=== PATIENT | male | born 1955 | race Caucasian/White ===

== ENCOUNTER 2017-01-09 13:51 | Inpatient (IN) | payer OTHER ==
[~2017-01-09] VITALS: Ht 182.9 cm; Wt 106.4 kg
[2017-01-09] VITALS (14 sets, daily range): BP systolic 99–131; BP diastolic 70–84; PULSE 78–97; RESP 16–22; TEMP 99.1; O2SAT 82–94
[~2017-01-09 13:51] MED LIST: 1-ME1LIQ PO; ALLO300T2 PO; ASPI81TA82 PO; ATOR20TA PO; BUME1TAB PO; CARV6.252 PO; CHOL50006 PO; FERR140T PO; NITR.4 SL; PRAS10TA PO; PROT40TA PO
[2017-01-09] MEDS ORDERED: SODIUM CHLORIDE 0.9% FLUSH 10 ML FLUSH IVF PRN (14:30)
[2017-01-09] MEDS ORDERED: RESP: ALBUTEROL 2.5 MG/3 ML NEB (SCH) INH ONE (14:30)
--- NOTE | 2017-01-09 14:35 | PD ---
HPI Chief Complaint: Cold / Flu Symptoms Time Seen by Provider: 14:10 Travel History International Travel<30 days: No Contact w/Intl Traveler<30days: Yes (flew from [place], possible exposure) Traveled to known affect area: No History of Present Illness HPI 61-year-old male arrives complaining of rhinorrhea, sore throat chest pain shortness of breath for about 2 days or so. Subjective fever reported. Symptoms became much worse this morning. Decreased appetite reported. Urination normal. He's recently flown from [place]. Urgent care workup reveals a multilobar pneumonia. PFSH Past Medical History Asthma: No Autoimmune Disease: No Anxiety: No Depression: No Heart Rhythm Problems: No Cancer: No Cardiovascular Problems: Yes (SD, Sents) High Cholesterol: Yes Chest Pain: No Congestive Heart Failure: Yes COPD: No Diabetes: No Diminished Hearing: No Deep Vein Thrombosis: Yes (RIGHT LEG 2004) Endocrine: No Gastrointestinal Disorders: Yes (REFLUX) GERD: No Gout: Yes Genitourinary: Yes (CONGENITAL ONE KIDNEY) Hepatitis: No Hiatal Hernia: No Hypertension: Yes Immune Disorder: No Musculoskeletal: Yes (HIP BILATERAL REPLACEMENTS) Neurologic: No Psychiatric: No Reproductive: No Respiratory: Yes (SLEEP APNEA, HX OF PE) Myocardial Infarction: Yes Sleep Apnea: Yes Thyroid Disease: No ?: Not Past Surgical History Abdominal Surgery: Yes (APPENDECTOMY) Appendectomy: Yes (2006) Body Medical Devices: DENTAL IMPLANTS Cardiac Surgery: No (ANGIOPLASTY 2013, CARDIAC CATH X2) Endocrine Surgery: No Genitourinary Surgery: Yes (LEFT ORCHIECTOMY, RIGHT HERNIA REPAIR) Joint Replacement: Yes (LEFT HIP, RIGHT HIP) Neurologic Surgery: No Pacemaker: No Thoracic Surgery: No Tonsillectomy: Yes Other Surgery: Yes (TESTICLE REMOVED DUE TO UNDESCENDED TESTE) Social History Alcohol Use: Yes (WEEKENDS 2-3 BEERS OR COCKTAILS) Tobacco Use: No Substance Use: No Allergies-Medications (Allergen,Severity, Reaction): Coded Allergies: Aleve (Verified Allergy, Unknown, hives, 06/09/15) Reported Meds & Prescriptions Reported Meds & Active Scripts Active Bumetanide 1 Mg (Bumetanide) 1 Mg Tab 1 Mg PO DAILY Reported Amlodipine Besylate 10 mg (Amlodipine Besylate) 10 Mg Tab 1 Tab PO DAILY Nitroglycerin 0.4 Mg Subl 0.4 Mg SL DIRECTED Carvedilol 6.25 mg (Carvedilol) 6.25 Mg Tab 6.25 Mg PO BID Effient (Prasugrel) 10 Mg Tab 10 Mg PO DAILY Aspir-81 (Aspirin) 81 Mg Tab 81 Mg PO DAILY Protonix (Pantoprazole Sodium) 40 Mg Tab 40 Mg PO DAILY Ferrous Sulfate 140 Mg Tab 325 Mg PO DAILY Atorvastatin 20 mg tab (Atorvastatin Calcium) 20 Mg Tab 20 Mg PO DAILY 30 Days Vitamin D (Cholecalciferol) 5,000 Unit Tab 1,000 Unit PO DAILY Allopurinol 300 Mg Tab 150 Mg PO DAILY Review of Systems Except as stated in HPI: all other systems reviewed are Neg Physical Exam Narrative GENERAL: 61 yo M, NAD, WNWD SKIN: Warm and dry. HEAD: Atraumatic. Normocephalic. EYES: Pupils equal and round. No scleral icterus. No injection or drainage. ENT: No nasal bleeding or discharge. Mucous membranes pink and moist. NECK: Trachea midline. No JVD. CARDIOVASCULAR: Regular rate and rhythm. RESPIRATORY: Minimal dyspnea. Course breath sounds bilaterally. GASTROINTESTINAL: Abdomen soft, non-tender, nondistended. Hepatic and splenic margins not palpable. MUSCULOSKELETAL: Extremities without clubbing, cyanosis, or edema. No obvious deformities. NEUROLOGICAL: Awake and alert. No obvious cranial nerve deficits. Motor grossly within normal limits. Five out of 5 muscle strength in the arms and legs. Normal speech. PSYCHIATRIC: Appropriate mood and affect; insight and judgment normal. Data Data Last Documented VS Vital Signs Date Time Temp Pulse Resp B/P Pulse Ox O2 Delivery O2 Flow Rate FiO2 01/09/17 15:47 88 Nasal Cannula 4.00 01/09/17 14:21 99.1 89 18 99/71 Orders Complete Blood Count With Diff (01/09/17 14:21) Comprehensive Metabolic Panel (01/09/17 14:21) B-Type Natriuretic Peptide (01/09/17 14:21) Act Partial Throm Time (Ptt) (01/09/17 14:21) Prothrombin Time / Inr (Pt) (01/09/17 14:21) Ckmb (Isoenzyme) Profile (01/09/17 14:21) Troponin I (01/09/17 14:21) Iv Access Insert/Monitor (01/09/17 14:21) Electrocardiogram (01/09/17 14:21) Ecg Monitoring (01/09/17 14:21) Oximetry (01/09/17 14:21) Oxygen Administration (01/09/17 14:21) Chest, Single Ap (01/09/17 14:21) Sodium Chloride 0.9% Flush (Ns Flush) (01/09/17 14:30) Albuterol Neb (Albuterol Neb) (01/09/17 14:30) Blood Culture (01/09/17 14:55) Ceftriaxone Inj (Rocephin Inj) (01/09/17 15:00) Azithromycin Inj (Zithromax Inj) (01/09/17 15:00) Albuterol-Ipratropium Neb (Duoneb Neb) (01/09/17 15:00) Methylprednisolone So Succ Inj (Solumedr (01/09/17 15:00) CKMB (01/09/17 14:44) CKMB% (01/09/17 14:44) Lactic Acid (01/09/17 15:25) Labs Laboratory Tests Test 01/09/17 14:44 White Blood Count 3.6 TH/MM3 Red Blood Count 3.59 MIL/MM3 Hemoglobin 11.4 GM/DL Hematocrit 34.5 % Mean Corpuscular Volume 96.1 FL Mean Corpuscular Hemoglobin 31.9 PG Mean Corpuscular Hemoglobin 33.1 % Concent Red Cell Distribution Width 15.0 % Platelet Count 142 TH/MM3 Mean Platelet Volume 7.8 FL Neutrophils (%) (Auto) 70.4 % Lymphocytes (%) (Auto) 20.6 % Monocytes (%) (Auto) 7.0 % Eosinophils (%) (Auto) 1.1 % Basophils (%) (Auto) 0.9 % Neutrophils # (Auto) 2.7 TH/MM3 Lymphocytes # (Auto) 0.7 TH/MM3 Monocytes # (Auto) 0.2 TH/MM3 Eosinophils # (Auto) 0.0 TH/MM3 Basophils # (Auto) 0.0 TH/MM3 CBC Comment DIFF FINAL Differential Comment Prothrombin Time 10.9 SEC Prothromb Time International 1.0 RATIO Ratio Activated Partial 28.6 SEC Thromboplast Time Sodium Level 142 MEQ/L Potassium Level 4.8 MEQ/L Chloride Level 109 MEQ/L Carbon Dioxide Level 22.2 MEQ/L Anion Gap 11 MEQ/L Blood Urea Nitrogen 64 MG/DL Creatinine 5.10 MG/DL Estimat Glomerular Filtration 12 ML/MIN Rate Random Glucose 103 MG/DL Calcium Level 9.0 MG/DL Total Bilirubin 0.6 MG/DL Aspartate Amino Transf 21 U/L (AST/SGOT) Alanine Aminotransferase 25 U/L (ALT/SGPT) Alkaline Phosphatase 101 U/L Total Creatine Kinase 288 U/L Creatine Kinase MB 1.9 NG/ML Troponin I 0.10 NG/ML B-Type Natriuretic Peptide 1898 PG/ML Total Protein 6.8 GM/DL Albumin 3.0 GM/DL MDM Medical Decision Making Medical Screen Exam Complete: Yes Emergency Medical Condition: Yes Medical Record Reviewed: Yes Differential Diagnosis Pneumonia, CHF, anemia, kidney disease Narrative Course CBC & BMP Diagram 01/09/17 14:44 Tn 0.10 LFTs essentially normal Renal insufficiency worse than prior values BNP 1890 non-specific EKG: Sinus, rate 79, normal axis, normal intervals Pt has pneumonia - abx started, rocephin/azithro, he does re-iterate a crowded flight home from [place] Reassessment at 335PM mild tachypnea, speaking sentences, mild hypoxia at 90% on 4L NC; d/w Dr Menjivar, send lactic acid, reassess, placement in ICU likely necessary; admission to ICU confirmed by second phone conversation at 350pm. Sepsis Criteria SIRS Criteria (2 or more): WBC > 12132, < 4000 or > 10% bands Diagnosis Primary Impression: PNA (pneumonia) Qualified Code: J18.9 - Pneumonia of both lungs due to infectious organism, unspecified part of lung Additional Impression: Hypoxemia Admitting Information Admitting Physician Requests: Admit Additional Instructions: You have a choice when it comes to health care, and we are glad that you chose [facility]. Hopefully, we have met your expectations on today's visit. You are welcome to return to [facility] at any time, as we are committed to meeting the health care needs of our community. Yair Bell MD Jan 09, 2017 14:35
--- NOTE | 2017-01-09 14:38 | RADHPO ---
EXAM DATE/TIME: 01/09/2017 14:25 [facility] COMPARISON: CHEST SINGLE AP, June 09, 2015, 2:15. INDICATIONS : Cough and flu like symtoms. MEDICAL HISTORY : Myocardial infarction. SURGICAL HISTORY : Cardiac stents. ENCOUNTER: Initial ACUITY: 2 days PAIN SCORE: 0/10 LOCATION: Bilateral chest FINDINGS: The study is abnormal. There are consolidative changes in the left lower lobe with minimal air-space disease on the right all suspicious for an inflammatory process. The heart is minimally enlarged. Pulmonary vascularity is normal. CONCLUSION: Consolidative changes much worse on the left suspicious for an inflammatory process. David Bennett MD FACR on January 09, 2017 at 14:34 Board Certified Radiologist. This report was verified electronically.
[2017-01-09 14:55] LABS: AUTOMATED NEUTROPHIL # 2.7 TH/MM3 (1.8-7.7); BASOPHIL % 0.9 % (0.0-2.0); EOSINOPHIL % 1.1 % (0.0-4.0); HEMATOCRIT 34.5 % (39.0-51.0); HEMO FLAGS DIFF FINAL; LYMPH % 20.6 % (9.0-44.0); LYMPHOCYTE # 0.7 TH/MM3 (1.0-4.8); MEAN CELL VOLUME 96.1 FL (80.0-100.0); MEAN CORPUSCULAR HEMOGLOBIN 31.9 PG (27.0-34.0); MEAN CORPUSCULAR HGB CONC 33.1 % (32.0-36.0); NEUT % 70.4 % (16.0-70.0); PLATELET COUNT 142 TH/MM3 (150-450); RED BLOOD COUNT 3.59 MIL/MM3 (4.50-5.90); WHITE BLOOD COUNT 3.6 TH/MM3 (4.0-11.0)
[2017-01-09] MEDS ORDERED: methylPREDNISolone SOD SUCC 125 MG/2 ML VIAL IV ONE (15:00)
[2017-01-09] MEDS ORDERED: AZITHROMYCIN INJ 500 MG in SODIUM CHLOR 0.9% 250 ML INJ 250 ML IV ONE (15:00)
[2017-01-09] MEDS ORDERED: cefTRIAXone INJ 1,000 MG in SODIUM CHLORIDE 0.9% INJ 100 ML IV ONE (15:00)
[2017-01-09 15:05] LABS: CHLORIDE 109 MEQ/L (98-107); POTASSIUM 4.8 MEQ/L (3.5-5.1); SODIUM (NA) 142 MEQ/L (136-145)
[2017-01-09 15:09] LABS: ANION GAP 11 MEQ/L (5-15); APTT (PATIENT) 28.6 SEC (24.3-30.1); BICARBONATE 22.2 MEQ/L (21.0-32.0); BLOOD UREA NITROGEN 64 MG/DL (7-18); PROTHROMBIN TIME - PATIENT 10.9 SEC (9.8-11.6)
[2017-01-09 15:12] LABS: ALT (GPT) 25 U/L (12-78); AST (GOT) 21 U/L (15-37); GLOMERULAR FILTRATION RATE 12 ML/MIN (>89)
[2017-01-09 15:14] LABS: TOTAL BILIRUBIN ADULT 0.6 MG/DL (0.2-1.0)
[2017-01-09 15:15] LABS: ALKALINE PHOSPHATASE 101 U/L (45-117); CREATINE KINASE 288 U/L (39-308)
[2017-01-09 15:28] LABS: CKMB 1.9 NG/ML (0.5-3.6)
[2017-01-09] MEDS: RESP: ALBUTEROL 2.5 MG/IPRATROPIUM 0.5 MG NEB (SCH) INH ×2 (15:41→15:42)
[2017-01-09] MEDS ORDERED: SODIUM CHLORIDE 0.9% FLUSH 10 ML FLUSH IV FLUSH PRN (16:00)
[2017-01-09] MEDS ORDERED: ACETAMINOPHEN 325 MG TAB PO PRN (16:00)
[2017-01-09] MEDS ORDERED: MAGNESIUM HYDROXIDE SUSP 30 ML CUP PO PRN (16:00)
[2017-01-09] MEDS ORDERED: ONDANSETRON HCL 4 MG/2 ML VIAL IVP PRN (16:00)
[2017-01-09] MEDS ORDERED: NALOXONE HCL 0.4 MG/ML AMP IV PRN (16:00)
[2017-01-09] MEDS ORDERED: BUME2TAB PO (16:27)
[2017-01-09] MEDS ORDERED: ASPI81TA19 (16:27)
[2017-01-09] MEDS ORDERED: ALLO100T PO (16:27)
[2017-01-09] MEDS ORDERED: D-10TAB (16:27)
[2017-01-09] MEDS ORDERED: AMLO10TA2 PO (16:27)
[2017-01-09] MEDS ORDERED: [UNRECOGNIZED DRUG - CODE] CHEW (16:27)
[2017-01-09] MEDS ORDERED: ATOR20TA15 PO (16:27)
[2017-01-09] MEDS ORDERED: CARV6.252 PO (16:27)
[2017-01-09] MEDS ORDERED: SODI325T PO (16:27)
[2017-01-09] MEDS ORDERED: VORA1TAB (16:27)
--- NOTE | 2017-01-09 16:32 | HHI.HP ---
cc: Fanta Ochoa Jr., MD [facility] Fanta Ochoa MD Admission Diagnosis PNA, Hypoxia Diagnoses: (1) Severe sepsis Diagnosis: Principal (2) PNA (pneumonia) Diagnosis: Principal (3) Acute respiratory failure Diagnosis: Principal (4) Acute on chronic renal failure Diagnosis: Principal (5) Elevated troponin Diagnosis: Principal (6) Elevated brain natriuretic peptide (BNP) level Diagnosis: Principal (7) Mild anemia Diagnosis: Principal Chief Complaint: SOB Travel History International Travel<30 Days: No Contact w/Intl Traveler <30 Da: Yes (flew from [place], possible exposure) Traveled to Known Affected Are: No Sepsis Criteria SIRS Criteria (2 or more): Heart rate over 90, WBC > 05249, < 4000 or > 10% bands Sepsis Criteria (SIRS+source): Infect source susp/known Severe Sepsis (+one): Organ Dysfunction (O2 82% on RA) Criteria Outcome: Meets severe sepsis criteria History of Present Illness 61-year-old male with history of chronic kidney disease with one kidney, CHF, CAD, hypertension, hyperlipidemia, gout, DVT and PE, and sleep apnea presents with complaint of shortness of breath over the last 3 days stating that he felt "draggy". He states yesterday he was awoke with a mild sore throat but denies having head cold. He states it became worse and worse and woke up this morning and decided he needed to see a physician. He admits to a dry cough and shortness of breath and states his sides ache when he coughs. He admits to fevers and chills last night. Denies any nausea or vomiting. He states he has received a flu vaccination but denies using the pneumonia vaccination. States he was in [place] last week [employer] airplane. He had contact with his sister who had a cold. He denies any history of COPD. Denies leg swelling. The patient states he has stage 3.5-4 chronic kidney disease. Denies any decreased urinary output. Review of Systems Except as stated in HPI: all other systems reviewed are Neg Past Family Social History Past Medical History CAD, STEMI Hyperlipidemia Hypertension CHF CKD, one kidney DVT right leg, PE Sleep apnea Gout GERD Past Surgical History Cardiac catheterization with stenting to the LAD and second diagonal 09/16/13 Cardiac catheterization with in-stent LAD occlusion; restented 09/20/13 Cardiac catheterization 06/10/15 Appendectomy Left orchiectomy due to injury Right inguinal hernia repair TURP B/L hip replacements Reported Medications Reported Meds & Active Scripts Active Aspir-Low (Aspirin) 81 Mg Tabdr 81 Mg PO DAILY Zontivity (Vorapaxar Sulfate) 2.08 Mg Tab 2.08 Mg PO DAILY Reported Sodium Bicarbonate 325 Mg Tab 325 Mg PO BIDPC Fosrenol (Lanthanum Carbonate) 750 Mg Tab 750 Mg CHEW TIDPC D-1000 (Cholecalciferol) 1,000 Unit Tab Carvedilol 6.25 Mg Tab 6.25 Mg PO BID Amlodipine (Amlodipine Besylate) 10 Mg Tab 10 Mg PO DAILY Atorvastatin (Atorvastatin Calcium) 20 Mg Tab 20 Mg PO HS Bumetanide 2 Mg Tab 2 Mg PO DAILY Allopurinol 100 Mg Tab 180 Mg PO DAILY Allergies: Coded Allergies: Aleve (Verified Allergy, Unknown, hives, 06/09/15) Family History No family history of heart or lung disease. Social History Patient quit smoking 8 years ago; smoked cigarettes for 20 years. Lives in [place]. Physical Exam Vital Signs Vital Signs Date Time Temp Pulse Resp B/P Pulse Ox O2 Delivery O2 Flow Rate FiO2 01/09/17 16:19 91 18 131/84 90 Nasal Cannula 4 01/09/17 15:47 88 Nasal Cannula 4.00 01/09/17 14:25 82 Nasal Cannula 2 01/09/17 14:25 82 Nasal Cannula 2 01/09/17 14:25 82 Nasal Cannula 2 01/09/17 14:21 99.1 89 18 99/71 82 Physical Exam GENERAL: This is a pleasant well-nourished, well-developed patient, in no apparent distress. SKIN: Brown pigmentation over the right lower leg. Warm and dry. HEAD: Atraumatic. Normocephalic. EYES: No scleral icterus. No injection or drainage. NECK: Trachea midline. CARDIOVASCULAR: Regular rate and rhythm without murmurs, gallops, or rubs. HR increases with coughing. RESPIRATORY: Coarse breath sounds at the bases, worse over the LLL. O2 via NC. Dry cough. Patient purses his lips at times after coughing to control his breathing. MUSCULOSKELETAL: Trace edema bilateral lower extremities. NEUROLOGICAL: Awake and alert. Motor grossly within normal limits. Normal speech. PSYCHIATRIC: Normal mood and affect. Insight and judgement normal. Laboratory Laboratory Tests Test 01/09/17 01/09/17 14:44 15:47 White Blood Count 3.6 Red Blood Count 3.59 Hemoglobin 11.4 Hematocrit 34.5 Mean Corpuscular Volume 96.1 Mean Corpuscular Hemoglobin 31.9 Mean Corpuscular Hemoglobin 33.1 Concent Red Cell Distribution Width 15.0 Platelet Count 142 Mean Platelet Volume 7.8 Neutrophils (%) (Auto) 70.4 Lymphocytes (%) (Auto) 20.6 Monocytes (%) (Auto) 7.0 Eosinophils (%) (Auto) 1.1 Basophils (%) (Auto) 0.9 Neutrophils # (Auto) 2.7 Lymphocytes # (Auto) 0.7 Monocytes # (Auto) 0.2 Eosinophils # (Auto) 0.0 Basophils # (Auto) 0.0 CBC Comment DIFF FINAL Differential Comment Prothrombin Time 10.9 Prothromb Time International 1.0 Ratio Activated Partial 28.6 Thromboplast Time Sodium Level 142 Potassium Level 4.8 Chloride Level 109 Carbon Dioxide Level 22.2 Anion Gap 11 Blood Urea Nitrogen 64 Creatinine 5.10 Estimat Glomerular Filtration 12 Rate Random Glucose 103 Calcium Level 9.0 Total Bilirubin 0.6 Aspartate Amino Transf 21 (AST/SGOT) Alanine Aminotransferase 25 (ALT/SGPT) Alkaline Phosphatase 101 Total Creatine Kinase 288 Creatine Kinase MB 1.9 Troponin I 0.10 B-Type Natriuretic Peptide 1898 Total Protein 6.8 Albumin 3.0 Lactic Acid Level 1.3 Date/Time Procedure Status Source Growth 01/09/17 16:16 Influenza Types A,B Antigen (JANE) Received Nasal Washing Pending 01/09/17 15:10 Aerobic Blood Culture Received Blood Peripheral Pending 01/09/17 15:10 Anaerobic Blood Culture Received Blood Peripheral Pending Result Diagram: 01/09/17 1444 01/09/17 1444 Imaging Chest x-ray personally interpreted with bilateral consolidations, worse on the left. Assessment and Plan Assessment and Plan 61-year-old male with: Severe sepsis: WBC count 3.6. Heart rate greater than 90. O2 saturation 82% on room air. Source of infection pneumonia. Lactic acid normal. Influenza negative. -Antibiotics as below. -Telemetry -Blood cultures 2 pending -Monitor intake and output Pneumonia/Acute respiratory failure: Chest x-ray with consolidation bilaterally. ABG reviewed with the O2 saturation 82% on 4 L nasal cannula. -Patient was given azithromycin and ceftriaxone in the ED. Will start on Linezolid, Doxycycline, and Zosyn due to severity. Patient admitted to ICU. -Patient was given 125 mg of Solu-Medrol in the ED. -Sputum culture -Legionella and pneumococcal urinary antigen testing -DuoNeb every 4 hours scheduled q2 prn -Oxygen; now requiring Venturi mask. RT to follow. -CT chest ordered for better evaluation Acute on chronic renal failure: Patient states he has stage 3.5-4 CKD. BUN/ creatinine 64/5.10 acutely worse from creatinine of 2.77 on 06/10/15. ABG revealed metabolic acidosis. Electrolytes are stable. -Nephrology consultation -Ultrasound kidneys -Will avoid IVF due to pneumonia, impaired respiratory status, h/o CHF. -Avoid nephrotoxins Elevated troponin: 0.10. Likely attributed to renal failure. Elevated BNP: BNP 1898. Only trace lower extremity edema. Respiratory failure attributed to pneumonia. 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 Likely not in acute CHF exacerbation. -New Echo ordered Mild anemia: 11.4, previously 14.1 on 06/09/15, but patient has had anemia in the past per EMR. -Monitor CBC HTN: Continue carvedilol. Hold amlodipine. CAD: Continue ASA, Zontivity, and statin DVT prevention: Heparin sq Written by Valeria Rodriguez PA-C acting as scribe for Dr. Menjivar on 01/09/17 at ~ 1620. This note was transcribed by scribe. I, Dr. Litzy Menjivar personally performed the history, physical exam, and medical decision making; and confirmed the accuracy of the information in the transcribed note. Authenticated by Dr. Litzy Menjivar on 01/18/17 at 19:03. Code Status FULL CODE. Patient also understands that if his respiratory status deteriorates he could require intubation and he is agreeable to this. Patient's health care surrogate is his partner Geronimo Carson. Discussed Condition With patient Physician Certification 2 Midnight Certification Type: Admission for Inpatient Services Order for Inpatient Services The services are ordered in accordance with Medicare regulations or non- Medicare payer requirements, as applicable. In the case of services not specified as inpatient-only, they are appropriately provided as inpatient services in accordance with the 2-midnight benchmark. Estimated LOS (days): 2 days is the estimated time the patient will need to remain in the hospital, assuming treatment plan goals are met and no additional complications. Post-Hospital Plan: Not yet determined Problem Qualifiers (1) PNA (pneumonia): Qualified Code: J18.9 - Pneumonia of both lungs due to infectious organism, unspecified part of lung Valeria Rodriguez Jan 09, 2017 16:32 Litzy Menjivar MD Jan 18, 2017 19:04
[2017-01-09] MEDS ORDERED: ASPI81TA19 PO (16:59)
[2017-01-09] MEDS ORDERED: VORA1TAB PO (16:59)
[2017-01-09 17:07] LABS: BLOOD GAS BASE EXCESS -6.6 mmol/L (-2-2); BLOOD GAS CARBOXYHEMOGLOBIN 2.3 % (0-4); BLOOD GAS HCO3 18 mmol/L (22-26); BLOOD GAS METHEMOGLOBIN 1.2 % (0-2); BLOOD GAS O2 HGB SATURATION 82 % (90-100); BLOOD GAS OXYGEN CONTENT 13.6 Vol % (12.0-20.0); BLOOD GAS PCO2 30 mmHG (38-42); BLOOD GAS PO2 51 mmHG (61-120); BLOOD GAS TOTAL HGB 11.8 G/DL (12.0-16.0); TEMP CORR TO 98.6
[2017-01-09 17:09] LABS: CRITICAL VALUE YES; DRAW SITE LT RADIAL; LITER FLOW 4 L/M; NUMBER OF ARTERIAL PUNCTURES 1; OXYGEN DEVICE NASAL CANNULA; STAT NO; ULNAR PULSE PRESENT
[2017-01-09] MEDS: DOXYCYCLINE INJ 100 MG in SODIUM CHLORIDE 0.9% INJ 100 ML IV SCH (17:31)
[2017-01-09] MEDS: HEPARIN SODIUM - SQ 10,000 UNITS/ML VIAL SQ SCH (17:31)
--- NOTE | 2017-01-09 17:38 | RADHPO ---
EXAM DATE/TIME: 01/09/2017 16:29 [facility] COMPARISON: CHEST SINGLE AP, January 09, 2017, 14:25. INDICATIONS : Shortness of breath. RADIATION DOSE: 17.60 CTDIvol (mGy) MEDICAL HISTORY : Myocardial infarction. Hypertension. Congestive heart failure. Pulmonary embolism. SURGICAL HISTORY : Stents. ENCOUNTER: Initial ACUITY: 1 day PAIN SCALE: 0/10 LOCATION: Bilateral chest TECHNIQUE: Volumetric scanning of the chest was performed. Using automated exposure control and adjustment of t he mA and/or kV according to patient size, radiation dose was kept as low as reasonably achievable to obtain optimal diagnostic quality images. FINDINGS: LUNGS: Patchy bilateral airspace disease, left greater than right descending for pneumonic infiltrate. PLEURAE: Small bilateral pleural effusions. MEDIASTINUM: Pretracheal and AP window adenopathy is probably reactive associated with the bilateral airspace dise ase. Dense atherosclerotic calcification of the coronary arteries. AXILLAE: Within normal limits. No lymphadenopathy. MUSCULOSKELETAL: Within normal limits for patient age. MISCELLANEOUS: The visualized upper abdominal organs demonstrate no acute abnormality. CONCLUSION: 1. CT confirms the presence of bilateral patchy airspace disease, left greater than right characteris tic of pneumonic infiltrates. 2. Associated pretracheal and AP window adenopathy, likely reactive. 3. Small bilateral pleural effusions. 4. Dense atherosclerotic calcification of the coronary arteries Akbar Chow MD on January 09, 2017 at 17:32 Board Certified Radiologist. This report was verified electronically.
[2017-01-09] MEDS ORDERED: PIPERACIL-TAZO 4.5 GM PREMIX 100 ML IV SCH (18:00)
[2017-01-09] MEDS: SODIUM CHLORIDE 0.9% FLUSH 10 ML FLUSH IV FLUSH SCH (20:13)
[2017-01-09] MEDS: LINEZOLID 600 MG PREMIX 300 ML IV SCH (20:13)
[2017-01-09] MEDS: RESP: ALBUTEROL 2.5 MG/IPRATROPIUM 0.5 MG NEB (SCH) NEB ×2 (20:40→23:46)
[2017-01-09] MEDS: ATORVASTATIN 20 MG TAB PO SCH (21:21)
[2017-01-09] MEDS: CARVEDILOL 6.25 MG TAB PO SCH (21:21)
[2017-01-10] VITALS (22 sets, daily range): BP systolic 105–158; BP diastolic 71–96; PULSE 76–102; RESP 20–33; TEMP 97.6–98.8; O2SAT 91–99
[2017-01-10] MEDS: PIPERACIL-TAZO 2.25 GM PREMIX 50 ML IV SCH ×4 (00:38→21:32)
[2017-01-10] MEDS ORDERED: CHLORHEXIDINE GLUCONATE 2 % 1 PACK (2 CLOTHS)(extra cloths) TOPICAL PRN (01:30)
[2017-01-10] MEDS: RESP: ALBUTEROL 2.5 MG/IPRATROPIUM 0.5 MG NEB (SCH) NEB ×6 (03:35→23:16)
[2017-01-10] MEDS: CHLORHEXIDINE GLUCONATE 2 % 1 PACK (2 CLOTHS)(taper/protocol) TOPICAL SCH (04:00)
[2017-01-10] MEDS: HEPARIN SODIUM - SQ 10,000 UNITS/ML VIAL SQ SCH ×2 (04:20→16:02)
[2017-01-10] MEDS: DOXYCYCLINE INJ 100 MG in SODIUM CHLORIDE 0.9% INJ 100 ML IV SCH ×2 (04:20→16:01)
[2017-01-10] MEDS: LINEZOLID 600 MG PREMIX 300 ML IV SCH ×2 (04:21→18:40)
[2017-01-10 05:47] LABS: CHLORIDE 107 MEQ/L (98-107); SODIUM (NA) 139 MEQ/L (136-145)
[2017-01-10 05:51] LABS: ANION GAP 12 MEQ/L (5-15); BICARBONATE 20.5 MEQ/L (21.0-32.0)
[2017-01-10 06:10] LABS: ALKALINE PHOSPHATASE 81 U/L (45-117); ALT (GPT) 22 U/L (12-78); AST (GOT) 18 U/L (15-37); BLOOD UREA NITROGEN 74 MG/DL (7-18); GLOMERULAR FILTRATION RATE 10 ML/MIN (>89); TOTAL BILIRUBIN ADULT 0.4 MG/DL (0.2-1.0)
[2017-01-10] MEDS ORDERED: PILL SPLITTER OTHER PRN (08:30)
[2017-01-10] MEDS ORDERED: ZONTIVITY 2.08 MG PO SCH (09:00)
--- NOTE | 2017-01-10 09:15 | RADHPO ---
EXAM DATE/TIME: 01/10/2017 08:34 [facility] COMPARISON: US KIDNEY/RENAL/BLADDER, September 10, 2013, 16:33. EXTERNAL COMPARISON : [facility], US BILATERAL RENAL, April 27, 2016 INDICATIONS : Increased BUN/Creatinine. MEDICAL HISTORY : Myocardial infarction. Deep venous thrombosis. Hypercholesterolemia. Renal agenesis, right. Congestiv e heart failure. Hypertension. GERD. Gout. Pulmonary embolism. SURGICAL HISTORY : Appendectomy. Tonsillectomy. Angioplasty. Cardiac catheterization. TURP. Left orchiectomy. Hernia r epair. Bilateral hip replacement. ENCOUNTER: Subsequent ACUITY: 1 day PAIN SCORE: 0/10 LOCATION: Bilateral flank MEASUREMENTS: RIGHT KIDNEY: Absent LEFT KIDNEY: 10.9 x 7.1 x 6.8 cm FINDINGS: RIGHT KIDNEY: Not identified LEFT KIDNEY: Prominent increase in cortical echogenicity. No evidence of hydronephrosis, stone or mass BLADDER: Focally unremarkable. Prostate is mildly prominent. Hypoechoic area separate from the prostate payroll clerk ior to the bladder may be fortuitous debris filled bowel or a mass. Further evaluation with CT of the pelvis would be suggested. CONCLUSION: Possible pelvic mass. Recommend CT pelvis. Single kidney. Increased renal cortical echogenicity consistent with medical renal disease. No hydron ephrosis Ozzie Mcdaniel MD on January 10, 2017 at 9:11 Board Certified Radiologist. This report was verified electronically.
[2017-01-10] MEDS: ASPIRIN EC 81 MG TABEC PO SCH (09:37)
[2017-01-10] MEDS: CARVEDILOL 6.25 MG TAB PO SCH ×2 (09:37→21:27)
[2017-01-10] MEDS: ALLOPURINOL 100 MG TAB PO SCH (09:38)
[2017-01-10] MEDS: SODIUM CHLORIDE 0.9% FLUSH 10 ML FLUSH IV FLUSH SCH ×2 (09:41→21:00)
--- NOTE | 2017-01-10 10:36 | HHI.PR ---
Subjective Remarks Patient seen this morning. Says he feels a little better than when he came in. Denies any chest pain. Denies any nausea or vomiting. No fevers. Patient says he was hydrating very well due to cold. Objective Vital Signs Date Time Temp Pulse Resp B/P Pulse Ox O2 Delivery O2 Flow Rate FiO2 01/10/17 07:18 92 Nasal Cannula 6.00 01/10/17 06:00 90 26 142/87 93 01/10/17 06:00 90 01/10/17 05:00 84 21 128/85 99 01/10/17 04:00 84 01/10/17 04:00 98.4 84 21 129/72 91 01/10/17 03:00 80 26 114/73 94 01/10/17 02:00 76 01/10/17 02:00 76 27 105/71 95 01/10/17 01:20 80 01/10/17 01:00 80 25 114/73 95 01/10/17 00:06 86 22 116/76 92 01/10/17 00:05 98.5 86 25 118/78 91 01/09/17 23:31 89 18 128/72 94 Nasal Cannula 6 01/09/17 21:40 92 18 128/70 94 Nasal Cannula 6 01/09/17 21:15 78 18 127/84 94 Nasal Cannula 6 01/09/17 20:40 91 Venturi Mask 6.00 50 01/09/17 19:34 97 16 124/78 01/09/17 19:34 22 92 Venturi Mask 5 01/09/17 19:34 92 Venturi Mask 5 01/09/17 18:49 86 22 124/80 91 Venturi Mask 01/09/17 17:43 87 18 124/78 88 Venturi Mask 5 50 01/09/17 17:27 90 Venturi Mask 6.00 50 01/09/17 17:24 Venturi Mask 6.00 50 01/09/17 17:20 94 Partial Rebreather 13.00 01/09/17 17:07 84 Nasal Cannula 4.00 01/09/17 16:19 91 18 131/84 90 Nasal Cannula 4 01/09/17 15:47 88 Nasal Cannula 4.00 01/09/17 15:00 88 Nasal Cannula 4 01/09/17 14:25 82 Nasal Cannula 2 01/09/17 14:25 82 Nasal Cannula 2 01/09/17 14:25 82 Nasal Cannula 2 01/09/17 14:21 99.1 89 18 99/71 82 I/O 01/09/17 01/09/17 01/09/17 01/10/17 01/10/17 01/10/17 07:00 15:00 23:00 07:00 15:00 23:00 Intake Total 1210 ml 938 ml Output Total 125 ml 900 ml Balance 1085 ml 38 ml Intake Oral 360 ml 480 ml IV Total 850 ml 458 ml Output Urine Total 125 ml 900 ml # Bowel Movements 0 Result Diagram: 01/09/17 1444 01/10/17 0436 Imaging Last Impressions Renal Ultrasound 01/10/17 0000 Signed Impressions: Service Date/Time: January 08:34 - CONCLUSION: Possible pelvic mass. Recommend CT pelvis. Single kidney. Increased renal cortical echogenicity consistent with medical renal disease. No hydronephrosis Ozzie Mcdaniel MD Chest X-Ray 01/09/17 1421 Signed Impressions: Service Date/Time: Monday, January 09, 2017 14:25 - CONCLUSION: Consolidative changes much worse on the left suspicious for an inflammatory process. David Bennett MD FACR Chest CT 01/09/17 0000 Signed Impressions: Service Date/Time: Monday, January 09, 2017 16:29 - CONCLUSION: 1. CT confirms the presence of bilateral patchy airspace disease, left greater than right characteristic of pneumonic infiltrates. 2. Associated pretracheal and AP window adenopathy, likely reactive. 3. Small bilateral pleural effusions. 4. Dense atherosclerotic calcification of the coronary arteries Akbar Chow MD Objective Remarks GENERAL: Patient sitting up in bed. On oxygen. Appears comfortable. Alert and oriented 3. SKIN: Warm and dry. HEAD: Normocephalic. EYES: No scleral icterus. No injection or drainage. NECK: Supple, trachea midline. JVD. CARDIOVASCULAR: Regular rate and rhythm without murmurs, gallops, or rubs. RESPIRATORY: Breath sounds equal bilaterally. No accessory muscle use. GASTROINTESTINAL: Abdomen soft, non-tender, nondistended. MUSCULOSKELETAL: No cyanosis. No peripheral edema. BACK: Nontender without obvious deformity. No CVA tenderness. A/P Assessment and Plan 61-year-old male with: //Severe sepsis: WBC count 3.6. Heart rate greater than 90. O2 saturation 82% on room air. Source of infection pneumonia. Lactic acid normal. Influenza negative. -Antibiotics as below. -Telemetry -Blood cultures 2 no growth to date -Monitor intake and output -01/10. Repeat CBC pending. Legionella negative. Influenza negative. Likely dilution, CHF exacerbation. //Possible Pneumonia/Acute respiratory failure: Chest x-ray with consolidation bilaterally. ABG reviewed with the O2 saturation 82% on 4 L nasal cannula. -Patient was given azithromycin and ceftriaxone in the ED. Will start on Linezolid, Doxycycline, and Zosyn due to severity. Patient admitted to ICU. -Patient was given 125 mg of Solu-Medrol in the ED. -Sputum culture -Legionella and pneumococcal urinary antigen testing -DuoNeb every 4 hours scheduled q2 prn -Oxygen; now requiring Venturi mask. RT to follow. -CT chest I lateral airspace disease. Bilateral pleural effusions. Small. -01/10. No improvement. Suspect this is bilateral pulmonary edema. Treat for CHF exacerbation. 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 BUN/ creatinine 64/5.10 acutely worse from creatinine of 2.77 on 06/10/15. ABG revealed metabolic acidosis. Electrolytes are stable. -Nephrology consultation -Ultrasound kidneys -Will avoid IVF due to pneumonia, impaired respiratory status, h/o CHF. -Avoid nephrotoxins //Elevated troponin: 0.10. . Patient without chest pain. Attributed to renal failure. //Suspected CHF exacerbation Elevated BNP: BNP 1898. Only trace lower extremity edema. pos JVD. Respiratory failure initially attributed to pneumonia. -Dr. Guerra reported last EF was 40% and he is controlled on medications. -Patient was hydrating more than usual due to cold. -01/10-jvd. New Echo pending. Possible cardiorenal syndrome as well. Diuresis. //Mild anemia: 11.4, previously 14.1 on 06/09/15, but patient has had anemia in the past per EMR. -Likely secondary to kidney failure, dilution from fluid overload. Patient denies bleeding. -Monitor CBC HTN: Continue carvedilol. Hold amlodipine. Blood pressure stable. CAD: Continue ASA, Zontivity, and statin DVT prevention: Heparin sq Discharge Planning Continue tx for CHF exacerbation, acute renal failure. Grant Raygoza MD Jan 10, 2017 10:36
[2017-01-10 10:53] LABS: AUTOMATED NEUTROPHIL # 2.4 TH/MM3 (1.8-7.7); BASOPHIL % 0.5 % (0.0-2.0); HEMATOCRIT 31.7 % (39.0-51.0); HEMO FLAGS DIFF FINAL; LYMPH % 14.6 % (9.0-44.0); LYMPHOCYTE # 0.4 TH/MM3 (1.0-4.8); MEAN CELL VOLUME 96.3 FL (80.0-100.0); MEAN CORPUSCULAR HEMOGLOBIN 31.5 PG (27.0-34.0); MEAN CORPUSCULAR HGB CONC 32.8 % (32.0-36.0); MONO % 1.1 % (0.0-8.0); NEUT % 83.8 % (16.0-70.0); PLATELET COUNT 136 TH/MM3 (150-450); RED BLOOD COUNT 3.29 MIL/MM3 (4.50-5.90); RED CELL DISTRIBUTION WIDTH 14.3 % (11.6-17.2); WHITE BLOOD COUNT 2.8 TH/MM3 (4.0-11.0)
[2017-01-10] MEDS ORDERED: FUROSEMIDE 40 MG/4 ML VIAL IV PUSH ONE (11:00)
--- NOTE | 2017-01-10 11:42 | EC ---
Study Study Date:01/10/2017 STUDY CONCLUSIONS SUMMARY - Left ventricle: The cavity size was dilated. Wall thickness was normal. Systolic function was moderately to severely reduced by visual assessment. The estimated ejection fraction was in the range of 35% to 40%. Wall motion was normal; there were no regional wall motion abnormalities. Features are consistent with a pseudonormal left ventricular filling pattern, with concomitant abnormal relaxation and increased filling pressure (grade 2 diastolic dysfunction). - Mitral valve: Mild to moderate regurgitation. - Left atrium: The atrium was mildly dilated. - Tricuspid valve: Mild regurgitation. - Pulmonary arteries: Systolic pressure was moderately increased. PA peak pressure: 54mm Hg (S). If LV function is below 40, please consider prescribing an ACEI or ARB or document rationale for non-use. PROCEDURE DATA STUDY STATUS: Elective. Procedure: Transthoracic echocardiography. Image quality was good. Scanning was performed from the parasternal, apical, and subcostal acoustic windows. Study completion: The patient tolerated the procedure well. Transthoracic echocardiography. M-mode, complete 2D, complete spectral Doppler, and color Doppler. Patient status: Inpatient. CARDIAC ANATOMY LEFT VENTRICLE: The cavity size was dilated. Wall thickness was normal. Systolic function was moderately to severely reduced by visual assessment. The estimated ejection fraction was in the range of 35% to 40%. Wall motion was normal; there were no regional wall motion abnormalities. Features are consistent with a pseudonormal left ventricular filling pattern, with concomitant abnormal relaxation and increased filling pressure (grade 2 diastolic dysfunction). AORTIC VALVE: Probably trileaflet; normal thickness leaflets. Doppler: Transvalvular velocity was within the normal range. There was no stenosis. No regurgitation. AORTA: Aortic root: The aortic root was normal in size. MITRAL VALVE: Structurally normal valve. Doppler: Transvalvular velocity was within the normal range. There was no evidence for stenosis. Mild to moderate regurgitation. Peak gradient: 3mm Hg (D). LEFT ATRIUM: The atrium was mildly dilated. RIGHT VENTRICLE: The cavity size was normal. Wall thickness was normal. PULMONIC VALVE: Doppler: Transvalvular velocity was within the normal range. There was no evidence for stenosis. No regurgitation. TRICUSPID VALVE: Structurally normal valve. Doppler: Transvalvular velocity was within the normal range. Mild regurgitation. PULMONARY ARTERY: Systolic pressure was moderately increased. RIGHT ATRIUM: Not well visualized. The atrium was normal in size. PERICARDIUM: There was no pericardial effusion. SYSTEMIC VEINS: Inferior vena cava: The vessel was normal in size. BASIC MEASUREMENTS ADULT Normal Left ventricle LV internal dimension, ED, chordal level, 48.6 mm 43-52 PLAX LV internal dimension, ES, chordal level, *39.7 mm 23-38 PLAX Fractional shortening, chordal level, PLAX *18 % >29 LV posterior wall thickness, ED 9.59 mm IVS/LVPW ratio, ED 0.92 <1.3 Ventricular septum Septal thickness, ED 8.82 mm Left atrium Anterior-posterior dimension 39 mm Right ventricle RV internal dimension, ED, PLAX 19.3 mm 19-38 DOPPLER MEASUREMENTS ADULT Normal Main pulmonary artery Pressure, S *54 mm Hg =30 Mitral valve Peak E-wave velocity 92.7 cm/s Peak A-wave velocity 43.9 cm/s Peak gradient, D 3 mm Hg Peak E/A ratio 2.1 Maximal regurgitant velocity 475 cm/s Tricuspid valve Regurgitant peak velocity 350 cm/s Peak RV-RA gradient, S 49 mm Hg Maximal regurgitant velocity 350 cm/s Systemic veins Estimated CVP 5 mm Hg Right ventricle RV pressure, S *54 mm Hg <30 LEGEND: Mean values are shown as u=mean value. Asterisk (*) hernandez values outside specified normal range. Prepared and signed by Vic Winkler [id number]
[2017-01-10] MEDS ORDERED: DIATRIZOATE MEGLUM/DIATRIZOATE SOD 9 ML CUP PO ONE (12:30)
--- NOTE | 2017-01-10 12:55 | MB ---
cc: KEY QUIÑONES MD DATE OF CONSULTATION 01/10/2017 REASON FOR CONSULTATION Chronic kidney disease, advanced renal failure. HISTORY OF PRESENT ILLNESS This is a 61-year-old male with a past medical history of hypertension, history of sleep apnea, ischemic heart disease, hyperlipidemia, congestive heart failure, chronic kidney disease with single kidney. He came to the hospital with the complaint of worsening shortness of breath. I was called to see the patient because of elevated BUN and creatinine. The patient has known history of chronic kidney disease and he has been following with professor of archaeology in [place] and he was told that he will need to go on dialysis soon and he went through all this and he decided that he would want to go for peritoneal dialysis and he is supposed to see his professor of archaeology tomorrow to finalize the plan to get the PD catheter. 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 For the last 10 days to 2 weeks he has noticed that he has increased shortness of breath and has been getting worse. There was cough, mainly dry. There is no history of fever but at night he was feeling some chills. There is no vomiting. There is no dysuria, hematuria or difficulty in passing urine but he did notice that he has been passing a little bit less. He was taking Bumex 1 mg at home he was told by his professor of archaeology to increase it to twice a day if needed. He denies any chest pain. PAST MEDICAL HISTORY 1. Hypertension. 2. Ischemic heart disease. 3. Hyperlipidemia. 4. Chronic kidney disease. 5. Congestive heart failure. 6. History of DVT and pulmonary embolism. 7. Sleep apnea. 8. Gout. 9. Gastroesophageal reflux disease. PAST SURGICAL HISTORY 1. Cardiac catheterization. 2. Appendicectomy. 3. Left orchiectomy. 4. Right inguinal surgery. 5. TURP. 6. Bilateral hip replacements. REVIEW OF SYSTEMS The patient had history of fever, just the night before coming here and was feeling chills but here he has been afebrile with no headache or dizziness. No nausea or vomiting. He has shortness of breath which has been getting worse on exertion. He is feeling better with oxygen and lying in the bed. Denies any chest pain. He has this cough which is mainly dry. There is no history of diarrhea. No dysuria or hematuria or difficulty in passing urine but he did notice that he has decreased urine output. There is no history of taking any nonsteroidal anti-inflammatory drugs. SOCIAL HISTORY Past history of smoking. Stopped eight years ago. There is no history of heavy alcoholism. FAMILY HISTORY Noncontributory. ALLERGIES ALLERGIC TO ALEVE. MEDICATIONS Currently he is on - 1. Carvedilol 6.25 mg b.i.d. 2. Allopurinol 150 mg once a day. 3. Aspirin 81 mg daily. 4. Lipitor 20 mg q.h.s. 5. DuoNeb nebulizer. 6. Furosemide 40 mg one dose written this morning. 7. Linezolid he is on 600 mg daily. 8. Doxycycline 100 mg q. 12 hours. 9. Heparin 5000 units subcu q. 12 hours. 10. Zosyn 2.25 grams IV q. 8 hours. 11. Morphine as needed. 12. Tylenol as needed. 13. Zofran as needed. PHYSICAL EXAMINATION GENERAL: The patient is awake and alert. He is not in acute distress. VITAL SIGNS: His last blood pressure was 142/87, temperature 98.4, oxygen saturation on 6 liters nasal cannula, 92-93%. HEENT: Pupils equally reacting to light. Nonicteric sclerae, conjunctivae pale. NECK: Supple. JVD is not elevated. CHEST: The patient has bilateral decreased air entry with basilar rales and scattered wheezing. HEART: S1, S2. Regular rhythm. ABDOMEN: Distended, soft, lax. There is no tenderness. Bowel sounds positive. EXTREMITIES: There is mild edema in the legs. INVESTIGATIONS WBC count is 2.8. Hemoglobin is 10.4, platelet count 136, neutrophils 83.8%. Sodium 139, potassium 5.0, chloride 107, bicarb 20.5, BUN 74, creatinine 5.7, glucose 240, total protein is 6.2 with albumin of 2.5. INR is 1.0. Trop I is 0.1. Albumin 3.0, total protein 6.8, cholesterol is not done during this admission. Urinalysis showing that he has protein over 100. This was an old one done in 2012. IMAGING STUDIES The patient had ultrasound of the kidneys done which shows that he has absent right kidney. The left kidney is normal in size, possible pelvic mass. Recommend CT scan. Chest x-ray was done which shows consolidative changes much worse in the left suspicious of inflammatory process. Pulmonary vasculature is normal. CT of the chest was done which shows bilateral patchy air space disease, calcification of coronary arteries, bilateral small pleural effusions. ASSESSMENT AND PLAN 1. Pneumonia. 2. Chronic kidney disease with advanced renal failure. 3. Anemia. 4. Ischemic heart disease and congestive heart failure. 5. Mild anemia. 6. History of DVT. The patient has been getting antibiotics. He has been afebrile. The WBC count is low. The hemoglobin has dropped slightly but it is still 10.4. The patient has advanced renal failure and his GFR is 10-12. There is possibly an element of acute kidney injury also but he is probably reaching to the point that he will need to consider starting dialysis soon. I discussed with him in detail. He wants to ago for peritoneal dialysis and he wants to hold hemodialysis if possible. There is no acute urgency. At present he is not having too many symptoms of uremia except that he has decreased energy level which could be also from pneumonia. At present I agree with continuing IV fluid but I would also add diuretics which is Bumex that he has been taking at home and follow the BUN and creatinine. If it gets worse, then he probably will need to start on hemodialysis. I have discussed with him about it. Thank you for the consultation. I will follow the patient while he is in the hospital. MD RENETTA Alford/DARREN /11:01 AM /12:30 PM
--- NOTE | 2017-01-10 13:12 | EKG ---
Date Performed: 01/09/2017 Time Performed: 14:30:16 PTAGE: 61 years EKG: Sinus rhythm Lateral T wave changes are nonspecific Borderline ECG PREVIOUS TRACING : 06/10/2015 06.05 Compared to prior tracing no significant change DOCTOR: Kai Peck Interpretating Date/Time 01/10/2017 13:11:12
[2017-01-10 14:03] LABS: BLOOD, URINE SMALL (NEG); GLUCOSE,URINE 250 mg/dL (NEG); KETONE, URINE NEG (NEG); NITRITE,URINE NEG (NEG); PH, URINE 5.5 (5.0-8.5)
[2017-01-10 14:09] LABS: METHOD OF COLLECTION CLEAN CATCH; URINE COLOR STRAW (YELLW/STRAW)
[2017-01-10 14:10] LABS: COMMENT (UR) CULT NOT INDICATED; CULTURE IF INDICATED CULT NOT INDICATED; SQUAMOUS EPITHELIAL CELL URINE 0-5 /hpf (0-5)
--- NOTE | 2017-01-10 17:18 | RADHPO ---
EXAM DATE/TIME: 01/10/2017 15:44 [facility] COMPARISON: US KIDNEY/RENAL/BLADDER, January 10, 2017, 8:34. INDICATIONS : Abnormal results from ultrasound. Evaluate for pelvic mass. ORAL CONTRAST: Prescribed oral contrast ingested. RADIATION DOSE: 21.78 CTDIvol (mGy) MEDICAL HISTORY : Gastroesophageal reflux disease. Deep venous thrombosis. Renal failure, chronic.Hypertension. Pulmona ry embolism. CHF. Renal agenesis, right. SURGICAL HISTORY : Appendectomy. Bilateral hip replacements. Hernia repair. ENCOUNTER: Subsequent ACUITY: 2 days PAIN SCALE: 0/10 LOCATION: pelvis TECHNIQUE: Volumetric scanning of the abdomen and pelvis was performed. Using automated exposure control and ad justment of the mA and/or kV according to patient size, radiation dose was kept as low as reasonably achievable to obtain optimal diagnostic quality images. FINDINGS: The examination is performed to characterize no abnormality seen posterior to the prostate on recent renal ultrasound. There is a mass which measures 3.7 cm and contains internal hyperdensity including several small punctate areas of flocculation. This appears to be arising from or adjacent to the re ctum. The appearance suggests barium, however, there is no barium in the sigmoid colon. There are s ome small locular calcifications in the splenic flexure and transverse colon and a mixture of oral co ntrast and flocculation in the right colon. Oral contrast is present in proximal small bowel loops. No dilated loops of small bowel. The left kidney is prominent, measuring 13 cm in superior/inferior extent. No renal stones or hydron ephrosis. The right kidney is not identified. The liver, spleen, pancreas, and adrenal glands are u nremarkable non-contrast study. No calcified gallstones. The abdominal aorta is normal in diameter. Urinary bladder margins are smooth. There is an asymmetric appearance the seminal vesicles with th e right seminal vesicle considerably larger than the left. Bilateral fat containing inguinal hernias , right greater than left. Abnormal appearance of lower lungs with multifocal areas of patchy partially consolidative infiltrate . No evidence of pleural effusion. Wide windows for bony detail demonstrate bilateral total hip art hroplasty which does cause a area of beam hardening in the mid pelvis. No sclerotic lesion seen. Ad vanced degenerative change the posterior elements of the lower lumbar spine. CONCLUSION: 1. There is a 3.7 cm masslike lesion which contains a either calcification or retained barium; this a ppears to arise from the distal rectum and may represent a large diverticular outpouching or impacted barium. A calcified mass can not be excluded. May consider direct visualization with sigmoidoscopy to increase the specificity. 2. Abnormal appearance the lower lungs with patchy areas of partially consolidative airspace infiltra anup. 3. Bilateral fat containing inguinal hernias. 4. No dilated loops of small or large bowel. Lobo Oleary MD on January 10, 2017 at 17:09 Board Certified Radiologist. This report was verified electronically.
[2017-01-10] MEDS ORDERED: BUMETANIDE INJ 1 MG/4 ML VIAL IV PUSH SCH (18:00)
[2017-01-10] MEDS: ATORVASTATIN 20 MG TAB PO SCH (21:27)
[2017-01-11] VITALS (15 sets, daily range): BP systolic 114–127; BP diastolic 73–89; PULSE 75–90; RESP 20–24; TEMP 98.8; O2SAT 92–100
[2017-01-11] MEDS: HEPARIN SODIUM - SQ 10,000 UNITS/ML VIAL SQ SCH ×2 (03:31→16:39)
[2017-01-11] MEDS: DOXYCYCLINE INJ 100 MG in SODIUM CHLORIDE 0.9% INJ 100 ML IV SCH ×2 (03:31→16:40)
[2017-01-11] MEDS: CHLORHEXIDINE GLUCONATE 2 % 1 PACK (2 CLOTHS)(taper/protocol) TOPICAL SCH (03:31)
[2017-01-11] MEDS: RESP: ALBUTEROL 2.5 MG/IPRATROPIUM 0.5 MG NEB (SCH) NEB ×6 (04:03→23:01)
[2017-01-11] MEDS: LINEZOLID 600 MG PREMIX 300 ML IV SCH ×2 (04:41→16:39)
[2017-01-11] MEDS: PIPERACIL-TAZO 2.25 GM PREMIX 50 ML IV SCH ×3 (05:53→20:57)
[2017-01-11] MEDS ORDERED: BENZONATATE 100 MG CAP PO PRN (08:30)
[2017-01-11] MEDS: ATORVASTATIN 40 MG TAB PO SCH (08:37)
[2017-01-11] MEDS: MORPHINE SULFATE 4 MG/ML INJ IV PRN ×2 (08:39→22:32)
[2017-01-11] MEDS: ASPIRIN EC 81 MG TABEC PO SCH (08:39)
[2017-01-11] MEDS: ALLOPURINOL 100 MG TAB PO SCH (08:39)
[2017-01-11] MEDS: CARVEDILOL 6.25 MG TAB PO SCH ×2 (08:40→20:55)
[2017-01-11] MEDS: SODIUM CHLORIDE 0.9% FLUSH 10 ML FLUSH IV FLUSH SCH ×2 (09:00→20:56)
[2017-01-11 09:44] LABS: AUTOMATED NEUTROPHIL # 4.4 TH/MM3 (1.8-7.7); BASOPHIL % 0.1 % (0.0-2.0); EOSINOPHIL % 0.1 % (0.0-4.0); HEMATOCRIT 35.3 % (39.0-51.0); HEMO FLAGS DIFF FINAL; LYMPH % 12.8 % (9.0-44.0); LYMPHOCYTE # 0.7 TH/MM3 (1.0-4.8); MEAN CELL VOLUME 97.2 FL (80.0-100.0); MEAN CORPUSCULAR HEMOGLOBIN 32.1 PG (27.0-34.0); MONO % 3.2 % (0.0-8.0); NEUT % 83.8 % (16.0-70.0); PLATELET COUNT 148 TH/MM3 (150-450); RED BLOOD COUNT 3.63 MIL/MM3 (4.50-5.90); RED CELL DISTRIBUTION WIDTH 14.9 % (11.6-17.2); WHITE BLOOD COUNT 5.3 TH/MM3 (4.0-11.0)
[2017-01-11 10:03] LABS: BICARBONATE 21.5 MEQ/L (21.0-32.0); POTASSIUM 4.2 MEQ/L (3.5-5.1)
--- NOTE | 2017-01-11 11:17 | HHI.NPPN ---
Subjective Renal Failure: Stage IV History of Present Illness 61-year-old male with a past medical history of hypertension, history of sleep apnea, ischemic heart disease, hyperlipidemia, congestive heart failure, chronic kidney disease with single kidney. He came to the hospital with the complaint of worsening shortness of breath. I was called to see the patient because of elevated BUN and creatinine. The patient has known history of chronic kidney disease and he has been following with admeasurer in [place]. Additional Remarks Patient is alert, breathing is better, still has cough, mainly dry, no chest pain. Review of Systems General Constitutional: Fatigue Respiratory Lungs: SOB, Cough Cardiovascular Cardiac: Edema, GR Objective Data Data 01/10/17 01/11/17 19:00 07:00 Intake Total 563 ml 1197 ml Output Total 1275 ml 1600 ml Balance -712 ml -403 ml Intake Oral 480 ml 640 ml IV Total 83 ml 557 ml Output Urine Total 1275 ml 1600 ml # Bowel Movements 0 0 Vital Signs Date Time Temp Pulse Resp B/P Pulse Ox O2 Delivery O2 Flow Rate FiO2 01/11/17 10:00 81 01/11/17 08:00 81 01/11/17 08:00 98.8 75 20 126/86 100 01/11/17 07:34 94 Nasal Cannula 6.00 01/11/17 06:00 81 01/11/17 06:00 98.8 75 20 126/86 100 01/11/17 04:00 83 01/11/17 02:00 76 01/11/17 00:00 98.8 76 20 114/73 96 01/11/17 00:00 76 01/10/17 20:00 84 01/10/17 20:00 97.7 84 20 148/91 95 01/10/17 19:48 94 Nasal Cannula 6.00 01/10/17 18:00 78 01/10/17 18:00 97.9 78 20 131/88 96 01/10/17 17:00 82 23 144/89 94 01/10/17 16:00 84 01/10/17 16:00 82 23 134/85 95 01/10/17 14:00 88 01/10/17 13:00 84 26 129/79 95 01/10/17 12:00 86 01/10/17 12:00 97.6 86 28 126/78 93 -: 01/11/17 0920 01/11/17 0920 Microbiology 01/11/17 Gram Stain, Received Pending 01/11/17 Sputum Culture, Received Pending Physical Exam General Appearance: No Acute Distress, Comfortable Eyes Eye Exam: Pupils Equal Neck Neck Exam: Neck Supple, Trachea Midline Pulmonary Resp Exam: Breath Sounds Equal, No Distress, Rhonchi, Decreased Bases Cardiology CV Exam: Regular, Normal Sinus Rhythm Gastrointestinal/Abdomen GI Exam: Soft, Non-Tender, Bowel Sounds Present Extremeties Extremities Exam: Trace Edema Neurologic Neuro Exam: Alert, Awake, Oriented Psychiatric Psych Exam: Appropriate Responses Assessment/Plan Assessment Summary: GENTRY/Acute Renal Failure, CHF, CKD Stage IV Problem List: (1) HTN (hypertension) (2) CHF (congestive heart failure) (3) Elevated troponin (4) PNA (pneumonia) (5) Acute respiratory failure (6) Mild anemia (7) Acute on chronic renal failure Plan Patient has advance stage 4 chronic kidney disease, has some Acute worsening now. On antibiotics for pneumonia. BP is stable, urine out put is good. Bumex stopped, as also Creatinine increasing. D/W the patient again about possible HD. He would like to hold Dialysis if possible for now and start PD. If continue to get worse, will consider HD. Continue antibiotics, hold Bumex for now. Seen by cardiology. Problem Qualifiers (1) PNA (pneumonia): Qualified Code: J18.9 - Pneumonia of both lungs due to infectious organism, unspecified part of lung Vish Ann MD Jan 11, 2017 11:17
--- NOTE | 2017-01-11 12:43 | MB ---
cc: RODRIGO SERRA ALAN S. M.D. WILSON, VANCE E. M.D. DATE OF 1955 DATE OF CONSULTATION 01/11/2017 HISTORY OF PRESENT ILLNESS The patient is a pleasant 61-year-old gentleman I am seeing for cardiovascular consultation. I have reviewed outside and hospital records. The patient has known coronary artery disease with prior stenting done in 2012 with subsequent thrombosis with restenting. His last catheterization done 06/21 showed mild distal left main, 20-30% in-stent LAD stenosis, 90% narrowing of the diagonal with 40% proximal in-stent restenosis there, normal circumflex, mild to moderate RCA disease. SPECT nuclear done 10/23 showed fixed anterior defect with estimated ejection fraction 30%. The patient notes 3-4 days of increasing dry cough with fevers and shaking chills along with fatigue. He noted no chest pain or other cardiac symptomatology and has had no edema or palpitations. PAST MEDICAL HISTORY 1. Cardiac, as above. 2. Hypertension. 3. Hyperlipidemia. 4. Chronic kidney disease. 5. Prior PE and DVT in the right leg. 6. Sleep apnea. 7. Gout. 8. Clopidogrel non-responder. 9. Mild systolic congestive heart failure. PAST SURGICAL HISTORY 1. Bilateral total hip replacement. 2. Appendectomy. 3. Orchiectomy. SOCIAL HISTORY The patient is disabled and has a domestic partner. He is a former smoker and occasionally drinks. FAMILY HISTORY Remarkable for brother with an MD. ALLERGIES None. MEDICATION LIST Reviewed. Prior to admission he is on - 1. Allopurinol. 2. Amlodipine. 3. Aspirin. 4. Atorvastatin. 5. Bumex. 6. Carvedilol. 7. Zontivity. REVIEW OF SYSTEMS Only remarkable for the above along with occasional joint pain. EKG ON ADMISSION Sinus rhythm with nonspecific T-wave changes. ECHOCARDIOGRAM A 35-40% ejection fraction with mild to moderate MR and mild TR with estimated RV pressure 54-mm. CHEST CT revealed patchy bilateral air space disease with pretracheal and AP window adenopathy likely reactive. LABORATORY WORK The patient is a newly anemic. Hematocrit 31.7. PT/PTT normal. Potassium 5.0, creatinine has increased from 5.1 to 5.7 in the hospital. Glucose 240. Troponin 0.10. BNP elevated 1898. Albumin 3.0 and 2.5. LDL 87. PHYSICAL EXAMINATION VITAL SIGNS: Afebrile. Vital signs stable. GENERAL: He is alert and oriented x 3. There are no xanthelasma and oropharyngeal mucosa normal. He did have a low-grade fever on admission with some hypoxemia. CHEST: Decreased breath sounds with moderate mathis-expiratory wheezes. CARDIOVASCULAR: JVD normal. PMI not well felt. S1-S2. No murmurs or gallops. ABDOMEN: Benign. EXTREMITIES: No cyanosis, clubbing or edema. PULSES: Carotids without bruits. Radials 2+. Femorals deep, 1+ and without bruits. Pedals 1+. He is not ambulated. PROBLEMS 1. Probable pneumonia. 1. Elevated BNP - This is nonspecific and there is no definite evidence of congestive heart failure. His troponin is minimally elevated but in the setting of his renal disease and cardiomyopathy, this is nonspecific. 2. Hypertension. 3. Hyperlipidemia. 4. Known coronary disease. 5. Acute on chronic kidney disease. RECOMMENDATIONS At this point I would recommend the following - 1. Continue home cardiac medications without change. 2. DVT prophylaxis. 3. Renal is involved. 4. Antibiotics per primary service. 5. Low cholesterol/salt diet. 6. We will not follow but be available if needed. All questions have been answered. Kojo Trimble MD ASG/SSB /6:36 AM /12:25 PM
--- NOTE | 2017-01-11 20:24 | HHI.PR ---
Subjective Remarks pt seen this afternoon around 3pm. pt says he is feeling better. some coughing this am but feels like he is getting more air in his lungs. took off oxygen, down to 90%, then back to 92 on no o2. pt agrees to hiv testing. Objective Vital Signs Date Time Temp Pulse Resp B/P Pulse Ox O2 Delivery O2 Flow Rate FiO2 01/11/17 18:00 90 01/11/17 16:00 86 01/11/17 16:00 98.8 75 20 126/86 100 01/11/17 14:00 90 01/11/17 12:00 98.8 75 20 126/86 100 01/11/17 12:00 81 01/11/17 10:00 81 01/11/17 08:44 22 01/11/17 08:00 81 01/11/17 08:00 98.8 75 20 126/86 100 01/11/17 07:34 94 Nasal Cannula 6.00 01/11/17 06:00 81 01/11/17 06:00 98.8 75 20 126/86 100 01/11/17 04:00 83 01/11/17 02:00 76 01/11/17 00:00 98.8 76 20 114/73 96 01/11/17 00:00 76 I/O 01/10/17 01/10/17 01/10/17 01/11/17 01/11/17 01/11/17 07:00 15:00 23:00 07:00 15:00 23:00 Intake Total 938 ml 480 ml 605 ml 675 ml 580 ml Output Total 900 ml 1050 ml 1125 ml 700 ml 940 ml Balance 38 ml -570 ml -520 ml -25 ml -360 ml Intake Oral 480 ml 480 ml 400 ml 240 ml 480 ml IV Total 458 ml 0 ml 205 ml 435 ml 100 ml Output Urine Total 900 ml 1050 ml 1125 ml 700 ml 940 ml # Bowel Movements 0 0 0 0 1 Result Diagram: 01/11/1720 01/11/17 0920 Imaging Last Impressions Renal Ultrasound 01/10/17 0000 Signed Impressions: Service Date/Time: January 08:34 - CONCLUSION: Possible pelvic mass. Recommend CT pelvis. Single kidney. Increased renal cortical echogenicity consistent with medical renal disease. No hydronephrosis Ozzie Mcdaniel MD Abdomen/Pelvis CT 01/10/17 0000 Signed Impressions: Service Date/Time: January 15:44 - CONCLUSION: 1. There is a 3.7 cm masslike lesion which contains a either calcification or retained barium ; this appears to arise from the distal rectum and may represent a large diverticular outpouching or impacted barium. A calcified mass can not be excluded. May consider direct visualization with sigmoidoscopy to increase the specificity. 2. Abnormal appearance the lower lungs with patchy areas of partially consolidative airspace infiltrates. 3. Bilateral fat containing inguinal hernias. 4. No dilated loops of small or large bowel. Lobo Oleary MD Chest X-Ray 01/09/17 1421 Signed Impressions: Service Date/Time: Monday, January 09, 2017 14:25 - CONCLUSION: Consolidative changes much worse on the left suspicious for an inflammatory process. David Bennett MD FACR Chest CT 01/09/17 0000 Signed Impressions: Service Date/Time: Monday, January 09, 2017 16:29 - CONCLUSION: 1. CT confirms the presence of bilateral patchy airspace disease, left greater than right characteristic of pneumonic infiltrates. 2. Associated pretracheal and AP window adenopathy, likely reactive. 3. Small bilateral pleural effusions. 4. Dense atherosclerotic calcification of the coronary arteries Akbar Chow MD Objective Remarks GENERAL: Patient sitting up in chair. on 5 L of oxygen, however this was removed and patient subsequently satting 92% on room air. Appears comfortable. Alert and oriented 3. SKIN: Warm and dry. HEAD: Normocephalic. EYES: No scleral icterus. No injection or drainage. NECK: Supple, trachea midline. JVD. CARDIOVASCULAR: Regular rate and rhythm without murmurs, gallops, or rubs. RESPIRATORY: Breath sounds equal bilaterally. No accessory muscle use.patient with improved air movement today.bilateral crackles. GASTROINTESTINAL: Abdomen soft, non-tender, nondistended. MUSCULOSKELETAL: No cyanosis. No peripheral edema. BACK: Nontender without obvious deformity. No CVA tenderness. A/P Assessment and Plan 61-year-old male with: //Severe sepsis: WBC count 3.6. Heart rate greater than 90. O2 saturation 82% on room air. Source of infection pneumonia. Lactic acid normal. Influenza negative. -Antibiotics as below. -Telemetry -Blood cultures 2 no growth to date -Monitor intake and output -01/10. Repeat CBC pending. Legionella negative. Influenza negative. Likely dilution, CHF exacerbation. //Possible Pneumonia/Acute respiratory failure: Chest x-ray with consolidation bilaterally. ABG reviewed with the O2 saturation 82% on 4 L nasal cannula. -Patient was given azithromycin and ceftriaxone in the ED. Will start on Linezolid, Doxycycline, and Zosyn due to severity. Patient admitted to ICU. -Patient was given 125 mg of Solu-Medrol in the ED. -Sputum culture -Legionella and pneumococcal urinary antigen testing -DuoNeb every 4 hours scheduled q2 prn -Oxygen; now requiring Venturi mask. RT to follow. -CT chest I lateral airspace disease. Bilateral pleural effusions. Small. -01/10. No improvement. Suspect this is bilateral pulmonary edema. Treat for CHF exacerbation. -01/11. Cardiology does not believe this is a CHF exacerbation. Oxygenation improved with diuresis however. high RVSP on echo We'll get repeat chest x- ray. Antibiotics for coverage of atypical, Route spectrum coverage. HIV ordered to lymphopenia. 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 BUN/ creatinine 64/5.10 acutely worse from creatinine of 2.77 on 06/10/15. ABG revealed metabolic acidosis. Electrolytes are stable. -Nephrology consultation -Ultrasound kidneys -Will avoid IVF due to pneumonia, impaired respiratory status, h/o CHF. -Avoid nephrotoxins = Creatinine increasing, however percentagewise is overall stable. We'll continue to monitor. Appreciate nephrology assistance. hold diuretics for now. //Elevated troponin: 0.10. . Patient without chest pain. Attributed to renal failure. //Suspected CHF exacerbation Elevated BNP: BNP 1898. Only trace lower extremity edema. pos JVD. Respiratory failure initially attributed to pneumonia. -Dr. Guerra reported last EF was 40% and he is controlled on medications. -Patient was hydrating more than usual due to cold. -01/10-jvd. New Echo pending. Possible cardiorenal syndrome as well. Diuresis. -01/11. Echo reviewed with reduced ejection fraction. Elevated RVSP. with patchy bilateral airspace disease still suspect this is CHF/pulm hypertension related Appreciate cardiology's assistance. //Mild anemia: 11.4, previously 14.1 on 06/09/15, but patient has had anemia in the past per EMR. -Likely secondary to kidney failure, dilution from fluid overload. Patient denies bleeding. -Monitor CBC HTN: Continue carvedilol. Hold amlodipine. Blood pressure stable. CAD: Continue ASA, Zontivity, and statin //Incidental finding of rectal outpouching with barium retained. This is an incidental finding. Will need to be followed up as an outpatient. DVT prevention: Heparin sq Discharge Planning Continue tx for CHF exacerbation, acute kidney injury. Grant Raygoza MD Jan 11, 2017 20:24
[2017-01-11] MEDS: ZONTIVITY 2.08 MG PO SCH (20:55)
--- NOTE | 2017-01-11 20:58 | RADHPO ---
EXAM DATE/TIME: 01/11/2017 19:59 [facility] COMPARISON: CHEST SINGLE AP, January 09, 2017, 14:25. INDICATIONS : Shortness of breath. MEDICAL HISTORY : Gastroesophageal reflux disease. Deep venous thrombosis. Renal failure, chronic. Hypertension, Pu lmonary embolism. CHF. Renal agenesis, right, PA SURGICAL HISTORY : Appendectomy. Coronary artery stent. Bilateral hip replacements. Hernia repair ENCOUNTER: Subsequent ACUITY: 3 days PAIN SCORE: 0/10 LOCATION: Bilateral chest FINDINGS: The heart size is normal. There is some mild prominence of the interstitium seen in the mid and lower lungs. A focal area of alveolar consolidation is not clearly seen. The costophrenic angles appear g rossly clear. Spurs are seen in the thoracic spine CONCLUSION: Mild prominence of the interstitium in the mid and lower lungs likely representing so me mild edema. When compared to the prior exam the aeration of the lungs has improved. Ozzie Huff MD on January 11, 2017 at 20:34 Board Certified Radiologist. This report was verified electronically.
[2017-01-12] VITALS (28 sets, daily range): BP systolic 113–160; BP diastolic 65–87; PULSE 74–96; RESP 24–29; TEMP 95.3–98.6; O2SAT 90–98
[2017-01-12] MEDS: DOXYCYCLINE INJ 100 MG in SODIUM CHLORIDE 0.9% INJ 100 ML IV SCH ×2 (03:14→15:53)
[2017-01-12] MEDS: CHLORHEXIDINE GLUCONATE 2 % 1 PACK (2 CLOTHS)(taper/protocol) TOPICAL SCH (03:15)
[2017-01-12] MEDS: HEPARIN SODIUM - SQ 10,000 UNITS/ML VIAL SQ SCH ×2 (04:27→15:53)
[2017-01-12] MEDS: LINEZOLID 600 MG PREMIX 300 ML IV SCH (04:27)
[2017-01-12] MEDS: RESP: ALBUTEROL 2.5 MG/IPRATROPIUM 0.5 MG NEB (SCH) NEB ×6 (04:31→23:12)
[2017-01-12] MEDS: PIPERACIL-TAZO 2.25 GM PREMIX 50 ML IV SCH (05:46)
[2017-01-12 06:25] LABS: AUTOMATED NEUTROPHIL # 1.9 TH/MM3 (1.8-7.7); BASOPHIL % 0.4 % (0.0-2.0); EOSINOPHIL % 0.8 % (0.0-4.0); HEMATOCRIT 31.2 % (39.0-51.0); HEMO FLAGS DIFF FINAL; LYMPH % 31.4 % (9.0-44.0); LYMPHOCYTE # 0.9 TH/MM3 (1.0-4.8); MEAN CELL VOLUME 95.6 FL (80.0-100.0); MEAN CORPUSCULAR HEMOGLOBIN 30.6 PG (27.0-34.0); MONO % 8.3 % (0.0-8.0); NEUT % 59.1 % (16.0-70.0); PLATELET COUNT 130 TH/MM3 (150-450); RED BLOOD COUNT 3.27 MIL/MM3 (4.50-5.90); RED CELL DISTRIBUTION WIDTH 14.4 % (11.6-17.2)
[2017-01-12 06:34] LABS: POTASSIUM 4.8 MEQ/L (3.5-5.1)
[2017-01-12 06:38] LABS: BICARBONATE 23.3 MEQ/L (21.0-32.0)
[2017-01-12] MEDS: SODIUM CHLORIDE 0.9% FLUSH 10 ML FLUSH IV FLUSH SCH ×2 (09:24→21:11)
[2017-01-12] MEDS: ALLOPURINOL 100 MG TAB PO SCH (09:25)
[2017-01-12] MEDS: CARVEDILOL 6.25 MG TAB PO SCH ×2 (09:25→21:11)
[2017-01-12] MEDS: ATORVASTATIN 40 MG TAB PO SCH (09:25)
[2017-01-12] MEDS: ASPIRIN EC 81 MG TABEC PO SCH (09:25)
[2017-01-12] MEDS: ZONTIVITY 2.08 MG PO SCH (09:30)
--- NOTE | 2017-01-12 19:16 | HHI.NPPN ---
Subjective Renal Failure: Stage IV History of Present Illness 61-year-old male with a past medical history of hypertension, history of sleep apnea, ischemic heart disease, hyperlipidemia, congestive heart failure, chronic kidney disease with single kidney. He came to the hospital with the complaint of worsening shortness of breath. I was called to see the patient because of elevated BUN and creatinine. The patient has known history of chronic kidney disease and he has been following with staff auditor in [place]. Additional Remarks Feels well, reports breathing is improved today Review of Systems General Constitutional: Fatigue Respiratory Lungs: SOB, Cough Cardiovascular Cardiac: Edema, GR Objective Data Data 01/11/17 01/12/17 19:00 07:00 Intake Total 580 ml 1555 ml Output Total 940 ml 1700 ml Balance -360 ml -145 ml Intake Oral 480 ml 480 ml IV Total 100 ml 1075 ml Output Urine Total 940 ml 1700 ml # Bowel Movements 1 0 Vital Signs Date Time Temp Pulse Resp B/P Pulse Ox O2 Delivery O2 Flow Rate FiO2 01/12/17 18:06 80 01/12/17 17:01 74 24 94 01/12/17 16:28 95 Nasal Cannula 1.00 01/12/17 16:00 78 01/12/17 14:07 75 01/12/17 14:00 95.3 92 28 136/78 94 01/12/17 12:30 95 Nasal Cannula 2.00 01/12/17 12:00 74 01/12/17 11:45 97.9 82 29 121/80 96 01/12/17 10:00 84 01/12/17 08:30 79 01/12/17 08:21 93 Nasal Cannula 4.00 01/12/17 07:45 98.1 78 26 138/83 93 01/12/17 07:00 93 Nasal Cannula 3.00 01/12/17 06:00 76 01/12/17 04:00 98.6 83 28 113/65 98 01/12/17 04:00 78 01/12/17 02:00 74 01/12/17 00:00 98.3 78 24 126/84 97 01/12/17 00:00 74 01/11/17 22:00 88 01/11/17 20:15 88 01/11/17 20:05 94 Nasal Cannula 4.00 01/11/17 20:00 88 Nasal Cannula 4.00 01/11/17 20:00 98.8 89 24 127/89 92 -: 01/12/17 0555 01/12/17 0555 Physical Exam General Appearance: No Acute Distress, Comfortable Eyes Eye Exam: Pupils Equal Neck Neck Exam: Neck Supple, Trachea Midline Pulmonary Resp Exam: Breath Sounds Equal, No Distress, Rhonchi, Decreased Bases Cardiology CV Exam: Regular, Normal Sinus Rhythm Gastrointestinal/Abdomen GI Exam: Soft, Non-Tender, Bowel Sounds Present Extremeties Extremities Exam: Trace Edema Neurologic Neuro Exam: Alert, Awake, Oriented Psychiatric Psych Exam: Appropriate Responses Assessment/Plan Assessment Summary: GENTRY/Acute Renal Failure, CHF, CKD Stage IV Problem List: (1) HTN (hypertension) (2) CHF (congestive heart failure) (3) Elevated troponin (4) PNA (pneumonia) (5) Acute respiratory failure (6) Mild anemia (7) Acute on chronic renal failure Plan Patient has advance stage 4 chronic kidney disease, Creatinine stable at this time, 6->5.8 On antibiotics for pneumonia. BP is stable, urine out put is good. Bumex stopped, as also Creatinine increasing. He would like to hold Dialysis if possible for now and start PD - follows in [place], and is planning for renal transplant from his sister. No acute need for HD at this time, volume status and electrolytes stable. Continue to monitor labs and volume status. Continue antibiotics, hold Bumex for now. Problem Qualifiers (1) PNA (pneumonia): Qualified Code: J18.9 - Pneumonia of both lungs due to infectious organism, unspecified part of lung Yair Griffin MD Jan 12, 2017 19:16
[2017-01-12] MEDS: MORPHINE SULFATE 4 MG/ML INJ IV PRN (22:40)
--- NOTE | 2017-01-12 23:11 | HHI.PR ---
Subjective Remarks patient seen today around 2 PM. Says he is feeling better. He does say that previously he felt short of breath lying down, however now can lie down comfortably. Objective Vital Signs Date Time Temp Pulse Resp B/P Pulse Ox O2 Delivery O2 Flow Rate FiO2 01/12/17 21:20 90 24 153/86 94 01/12/17 21:12 96 24 137/85 93 01/12/17 20:01 98.2 82 29 138/87 93 01/12/17 19:50 94 Nasal Cannula 2.00 01/12/17 19:41 84 28 132/82 91 01/12/17 19:26 90 Nasal Cannula 1.00 01/12/17 19:00 93 Nasal Cannula 2.00 01/12/17 18:06 80 01/12/17 17:01 74 24 94 01/12/17 16:28 95 Nasal Cannula 1.00 01/12/17 16:00 78 01/12/17 14:07 75 01/12/17 14:00 95.3 92 28 136/78 94 01/12/17 12:30 95 Nasal Cannula 2.00 01/12/17 12:00 74 01/12/17 11:45 97.9 82 29 121/80 96 01/12/17 10:00 84 01/12/17 08:30 79 01/12/17 08:21 93 Nasal Cannula 4.00 01/12/17 07:45 98.1 78 26 138/83 93 01/12/17 07:00 93 Nasal Cannula 3.00 01/12/17 06:00 76 01/12/17 04:00 98.6 83 28 113/65 98 01/12/17 04:00 78 01/12/17 02:00 74 01/12/17 00:00 98.3 78 24 126/84 97 01/12/17 00:00 74 I/O 01/11/17 01/11/17 01/11/17 01/12/17 01/12/17 01/12/17 07:00 15:00 23:00 07:00 15:00 23:00 Intake Total 675 ml 580 ml 840 ml 715 ml 500 ml Output Total 700 ml 940 ml 800 ml 900 ml 550 ml 375 ml Balance -25 ml -360 ml 40 ml -185 ml -50 ml -375 ml Intake Oral 240 ml 480 ml 240 ml 240 ml 500 ml IV Total 435 ml 100 ml 600 ml 475 ml 0 ml Output Urine Total 700 ml 940 ml 800 ml 900 ml 550 ml 375 ml # Bowel Movements 0 1 0 0 1 Result Diagram: 01/12/1755 01/12/1755 Objective Remarks GENERAL: Patient lying in bed at about 20.on 2 L of oxygennc. Alert and oriented 3. SKIN: Warm and dry. HEAD: Normocephalic. EYES: No scleral icterus. No injection or drainage. NECK: Supple, trachea midline. JVD. CARDIOVASCULAR: Regular rate and rhythm without murmurs, gallops, or rubs. RESPIRATORY: Breath sounds equal bilaterally. bilateral crackles much improved. Still present however. GASTROINTESTINAL: Abdomen soft, non-tender, nondistended. MUSCULOSKELETAL: No cyanosis. No peripheral edema. BACK: Nontender without obvious deformity. No CVA tenderness. A/P Assessment and Plan 61-year-old male with: //Severe sepsis: WBC count 3.6. Heart rate greater than 90. O2 saturation 82% on room air. Source of infection pneumonia. Lactic acid normal. Influenza negative. -Antibiotics as below. -Telemetry -Blood cultures 2 no growth to date -Monitor intake and output -01/10. Repeat CBC pending. Legionella negative. Influenza negative. Likely dilution, CHF exacerbation. =improving. Secondary to CHF. unlikely atypical pneumonia, however will continue doxycycline //Possible Pneumonia/Acute respiratory failure: Chest x-ray with "consolidation " bilaterallyadmission chest x-ray. however this is found to be airspacedisease on CT chest. ABG reviewed with the O2 saturation 82% on 4 L nasal cannula. -Patient was given azithromycin and ceftriaxone in the ED. Will start on Linezolid, Doxycycline, and Zosyn due to severity. Patient admitted to ICU. -Patient was given 125 mg of Solu-Medrol in the ED. -Sputum culture -Legionella and pneumococcal urinary antigen testing -DuoNeb every 4 hours scheduled q2 prn -Oxygen; now requiring Venturi mask. RT to follow. -CT chest I lateral airspace disease. Bilateral pleural effusions. Small. -01/10. No improvement. Suspect this is bilateral pulmonary edema. Treat for CHF exacerbation. -01/11. Cardiology does not believe this is a CHF exacerbation. Oxygenation improved with diuresis however. high RVSP on echo We'll get repeat chest x- ray. Antibiotics for coverage of atypical, Route spectrum coverage. HIV ordered to lymphopenia. =. Chest x-ray with improved edema. Would not expect pneumonia improved so quickly on x-ray. Likely CHF. Continue fluid restrictions.HIV testing pending. 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 BUN/ creatinine 64/5.10 acutely worse from creatinine of 2.77 on 06/10/15. ABG revealed metabolic acidosis. Electrolytes are stable. -Nephrology consultation -Ultrasound kidneys -Will avoid IVF due to pneumonia, impaired respiratory status, h/o CHF. -Avoid nephrotoxins = Creatinine increasing =01/12. Creatinine stable, slight improvement today. Continue to monitor //Elevated troponin: 0.10. . Patient without chest pain. Attributed to renal failure. //Suspected CHF exacerbation Elevated BNP: BNP 1898. Only trace lower extremity edema. pos JVD. Respiratory failure initially attributed to pneumonia. -Dr. Guerra reported last EF was 40% and he is controlled on medications. -Patient was hydrating more than usual due to cold. -01/10-jvd. New Echo pending. Possible cardiorenal syndrome as well. Diuresis. -01/11. Echo reviewed with reduced ejection fraction. Elevated RVSP. with patchy bilateral airspace disease still suspect this is CHF/pulm hypertension related Appreciate cardiology's assistance. //Mild anemia: 11.4, previously 14.1 on 06/09/15, but patient has had anemia in the past per EMR. -Likely secondary to kidney failure, dilution from fluid overload. Patient denies bleeding. -Monitor CBC HTN: Continue carvedilol. Hold amlodipine. Blood pressure stable. CAD: Continue ASA, Zontivity, and statin //Incidental finding of rectal outpouching with barium retained. This is an incidental finding. Will need to be followed up as an outpatient. DVT prevention: Heparin sq Discharge Planning Continue tx for CHF exacerbation, acute kidney injury. oxygen evaluation pending. Grant Raygoza MD Jan 12, 2017 23:11
[2017-01-13] VITALS (32 sets, daily range): BP systolic 99–148; BP diastolic 68–93; PULSE 70–88; RESP 19–34; TEMP 97.9–98.4; O2SAT 88–99
[2017-01-13] MEDS: DOXYCYCLINE INJ 100 MG in SODIUM CHLORIDE 0.9% INJ 100 ML IV SCH ×2 (03:59→15:26)
[2017-01-13] MEDS: HEPARIN SODIUM - SQ 10,000 UNITS/ML VIAL SQ SCH ×2 (04:00→15:25)
[2017-01-13] MEDS: RESP: ALBUTEROL 2.5 MG/IPRATROPIUM 0.5 MG NEB (SCH) NEB ×4 (04:00→15:13)
[2017-01-13] MEDS: CHLORHEXIDINE GLUCONATE 2 % 1 PACK (2 CLOTHS)(taper/protocol) TOPICAL SCH (04:00)
[2017-01-13 06:45] LABS: AUTOMATED NEUTROPHIL # 1.4 TH/MM3 (1.8-7.7); BASOPHIL % 0.4 % (0.0-2.0); EOSINOPHIL # 0.1 TH/MM3 (0-0.4); EOSINOPHIL % 2.8 % (0.0-4.0); HEMATOCRIT 33.2 % (39.0-51.0); HEMO FLAGS DIFF FINAL; LYMPH % 42.1 % (9.0-44.0); LYMPHOCYTE # 1.3 TH/MM3 (1.0-4.8); MEAN CORPUSCULAR HEMOGLOBIN 30.8 PG (27.0-34.0); MONO % 8.4 % (0.0-8.0); NEUT % 46.3 % (16.0-70.0); PLATELET COUNT 140 TH/MM3 (150-450); RED BLOOD COUNT 3.46 MIL/MM3 (4.50-5.90); RED CELL DISTRIBUTION WIDTH 14.1 % (11.6-17.2); WHITE BLOOD COUNT 3.1 TH/MM3 (4.0-11.0)
[2017-01-13 06:52] LABS: CHLORIDE 113 MEQ/L (98-107); POTASSIUM 5.2 MEQ/L (3.5-5.1); SODIUM (NA) 145 MEQ/L (136-145)
[2017-01-13 06:56] LABS: ANION GAP 9 MEQ/L (5-15); BICARBONATE 22.9 MEQ/L (21.0-32.0); BLOOD UREA NITROGEN 70 MG/DL (7-18)
[2017-01-13 06:59] LABS: ALT (GPT) 29 U/L (12-78); AST (GOT) 29 U/L (15-37); GLOMERULAR FILTRATION RATE 10 ML/MIN (>89)
[2017-01-13 07:01] LABS: TOTAL BILIRUBIN ADULT 0.3 MG/DL (0.2-1.0)
[2017-01-13 07:02] LABS: ALKALINE PHOSPHATASE 69 U/L (45-117)
[2017-01-13] MEDS: CARVEDILOL 6.25 MG TAB PO SCH ×2 (09:58→21:05)
[2017-01-13] MEDS: ASPIRIN EC 81 MG TABEC PO SCH (09:58)
[2017-01-13] MEDS: ATORVASTATIN 40 MG TAB PO SCH (09:58)
[2017-01-13] MEDS: ALLOPURINOL 100 MG TAB PO SCH (09:59)
[2017-01-13] MEDS: ZONTIVITY 2.08 MG PO SCH (09:59)
--- NOTE | 2017-01-13 10:27 | EKG ---
Date Performed: 01/12/2017 Time Performed: 22:14:14 PTAGE: 61 years EKG: Atrial fibrillation. Abnormal ECG Compared to prior tracing no significant change PREVIOUS TRACING : 01/09/2017 14.30 DOCTOR: Jason Bell Interpretating Date/Time 01/13/2017 10:25:12
[2017-01-13] MEDS ORDERED: FUROSEMIDE 40 MG TAB PO ONE (14:15)
[2017-01-13] MEDS ORDERED: OXYGENTANK NAS.CANULA (14:25)
[2017-01-13] MEDS: SODIUM CHLORIDE 0.9% FLUSH 10 ML FLUSH IV FLUSH SCH ×2 (15:25→21:05)
--- NOTE | 2017-01-13 17:40 | HHI.NPPN ---
Subjective Renal Failure: Stage IV History of Present Illness 61-year-old male with a past medical history of hypertension, history of sleep apnea, ischemic heart disease, hyperlipidemia, congestive heart failure, chronic kidney disease with single kidney. He came to the hospital with the complaint of worsening shortness of breath. I was called to see the patient because of elevated BUN and creatinine. The patient has known history of chronic kidney disease and he has been following with infrastructure project manager in [place]. Additional Remarks Feels well, no acute complaints Review of Systems General Constitutional: Fatigue Respiratory Lungs: SOB, Cough Cardiovascular Cardiac: Edema, GR Objective Data Data 01/12/17 01/13/17 19:00 07:00 Intake Total 500 ml 832 ml Output Total 925 ml 1225 ml Balance -425 ml -393 ml Intake Oral 500 ml 720 ml IV Total 0 ml 112 ml Output Urine Total 925 ml 1225 ml # Bowel Movements 1 1 Vital Signs Date Time Temp Pulse Resp B/P Pulse Ox O2 Delivery O2 Flow Rate FiO2 01/13/17 16:30 70 01/13/17 16:00 78 28 124/79 01/13/17 14:09 73 01/13/17 14:01 82 34 134/84 01/13/17 12:36 70 01/13/17 12:01 98.0 72 22 141/91 95 01/13/17 11:01 74 25 135/83 92 01/13/17 10:01 78 22 144/87 92 01/13/17 10:00 74 01/13/17 09:01 80 25 147/88 92 01/13/17 08:01 98.1 72 21 142/92 93 01/13/17 08:00 72 01/13/17 07:51 96 Nasal Cannula 2.00 01/13/17 07:15 94 Nasal Cannula 2.00 01/13/17 07:01 84 25 125/87 93 01/13/17 06:01 74 24 125/84 99 01/13/17 06:00 74 01/13/17 05:01 98.4 74 19 117/73 90 01/13/17 04:01 76 21 99/68 95 01/13/17 04:00 74 01/13/17 03:01 84 21 119/79 96 01/13/17 02:01 76 24 99/78 88 01/13/17 02:00 78 01/13/17 01:01 88 22 106/71 92 01/13/17 00:01 98.2 86 24 148/93 94 01/13/17 00:00 86 01/12/17 23:12 95 Nasal Cannula 2.00 01/12/17 23:01 84 27 160/86 94 01/12/17 22:01 86 27 153/87 95 01/12/17 22:00 87 01/12/17 21:20 90 24 153/86 94 01/12/17 21:12 96 24 137/85 93 01/12/17 20:51 80 01/12/17 20:01 98.2 82 29 138/87 93 01/12/17 20:00 82 01/12/17 19:50 94 Nasal Cannula 2.00 01/12/17 19:41 84 28 132/82 91 01/12/17 19:26 90 Nasal Cannula 1.00 01/12/17 19:00 93 Nasal Cannula 2.00 01/12/17 18:06 80 -: 01/13/17 0602 01/13/17 0602 Physical Exam General Appearance: No Acute Distress, Comfortable Eyes Eye Exam: Pupils Equal Neck Neck Exam: Neck Supple, Trachea Midline Pulmonary Resp Exam: Breath Sounds Equal, No Distress, Rhonchi, Decreased Bases Cardiology CV Exam: Regular, Normal Sinus Rhythm Gastrointestinal/Abdomen GI Exam: Soft, Non-Tender, Bowel Sounds Present Extremeties Extremities Exam: Trace Edema Neurologic Neuro Exam: Alert, Awake, Oriented Psychiatric Psych Exam: Appropriate Responses Assessment/Plan Assessment Summary: GENTRY/Acute Renal Failure, CHF, CKD Stage IV Problem List: (1) HTN (hypertension) (2) CHF (congestive heart failure) (3) Elevated troponin (4) PNA (pneumonia) (5) Acute respiratory failure (6) Mild anemia (7) Acute on chronic renal failure Plan Patient has advance stage 4 chronic kidney disease, Creatinine stable at this time, 6->5.8 ->5.6 On antibiotics for pneumonia. BP is stable, urine out put is good. Bumex stopped, given lasix 40mg PO x 1 He would like to hold Dialysis if possible for now and start PD - follows in [place], and is planning for renal transplant from his sister. No acute need for HD at this time, volume status and electrolytes stable. Continue to monitor labs and volume status. Continue antibiotics, hold Bumex for now. Problem Qualifiers (1) PNA (pneumonia): Qualified Code: J18.9 - Pneumonia of both lungs due to infectious organism, unspecified part of lung Yair Griffin MD Jan 13, 2017 17:40
[2017-01-13] MEDS: LANTHANUM CARBONATE 500 MG CHEWABLE TABLET CHEW SCH (18:30)
[2017-01-13] MEDS: RESP: ALBUTEROL 2.5 MG/IPRATROPIUM 0.5 MG NEB (PRN) NEB (20:37)
[2017-01-13] MEDS: MORPHINE SULFATE 4 MG/ML INJ IV PRN (22:30)
--- NOTE | 2017-01-13 23:21 | HHI.PR ---
Subjective Remarks patient seen this morning around 10 AM. Says he is feeling better yet. Denies any chest pain. Shortness of breath again improved. Oxygen evaluation 86% while ambulating. Objective Vital Signs Date Time Temp Pulse Resp B/P Pulse Ox O2 Delivery O2 Flow Rate FiO2 01/13/17 22:00 74 01/13/17 22:00 74 25 96 01/13/17 21:00 82 21 01/13/17 20:37 96 Nasal Cannula 2.00 01/13/17 20:00 79 01/13/17 20:00 97.9 78 24 129/84 96 01/13/17 20:00 96 Nasal Cannula 2.00 01/13/17 19:52 78 24 129/84 01/13/17 19:00 84 25 01/13/17 18:30 70 01/13/17 16:30 70 01/13/17 16:00 78 28 124/79 01/13/17 14:09 73 01/13/17 14:01 82 34 134/84 01/13/17 12:36 70 01/13/17 12:01 98.0 72 22 141/91 95 01/13/17 11:01 74 25 135/83 92 01/13/17 10:01 78 22 144/87 92 01/13/17 10:00 74 01/13/17 09:01 80 25 147/88 92 01/13/17 08:01 98.1 72 21 142/92 93 01/13/17 08:00 72 01/13/17 07:51 96 Nasal Cannula 2.00 01/13/17 07:15 94 Nasal Cannula 2.00 01/13/17 07:01 84 25 125/87 93 01/13/17 06:01 74 24 125/84 99 01/13/17 06:00 74 01/13/17 05:01 98.4 74 19 117/73 90 01/13/17 04:01 76 21 99/68 95 01/13/17 04:00 74 01/13/17 03:01 84 21 119/79 96 01/13/17 02:01 76 24 99/78 88 01/13/17 02:00 78 01/13/17 01:01 88 22 106/71 92 01/13/17 00:01 98.2 86 24 148/93 94 01/13/17 00:00 86 I/O 01/12/17 01/12/17 01/12/17 01/13/17 01/13/17 01/13/17 07:00 15:00 23:00 07:00 15:00 23:00 Intake Total 715 ml 500 ml 480 ml 352 ml 560 ml 120 ml Output Total 900 ml 550 ml 925 ml 675 ml 450 ml 300 ml Balance -185 ml -50 ml -445 ml -323 ml 110 ml -180 ml Intake Oral 240 ml 500 ml 480 ml 240 ml 560 ml 120 ml IV Total 475 ml 0 ml 0 ml 112 ml Output Urine Total 900 ml 550 ml 925 ml 675 ml 450 ml 300 ml # Bowel Movements 0 1 1 0 0 Result Diagram: 01/13/1760101/13/17601 Objective Remarks GENERAL: Patientsitting up in bed. Appears comfortable. Alert and oriented 3.patient is on 2 L nasal cannula. SKIN: Warm and dry. HEAD: Normocephalic. EYES: No scleral icterus. No injection or drainage. NECK: Supple, trachea midline. JVD. CARDIOVASCULAR: Regular rate and rhythm without murmurs, gallops, or rubs. RESPIRATORY: Breath sounds equal bilaterally. bilateral crackles much improved. Still present however. GASTROINTESTINAL: Abdomen soft, non-tender, nondistended. MUSCULOSKELETAL: No cyanosis. No peripheral edema. BACK: Nontender without obvious deformity. No CVA tenderness. A/P Assessment and Plan 61-year-old male with: //Severe sepsis: WBC count 3.6. Heart rate greater than 90. O2 saturation 82% on room air. Source of infection pneumonia. Lactic acid normal. Influenza negative. -Antibiotics as below. -Telemetry -Blood cultures 2 no growth to date -Monitor intake and output -01/10. Repeat CBC pending. Legionella negative. Influenza negative. Likely dilution, CHF exacerbation. =improving. Secondary to CHF. unlikely atypical pneumonia, however will continue doxycycline //Possible Pneumonia/Acute respiratory failure: Chest x-ray with "consolidation " bilaterallyadmission chest x-ray. however this is found to be airspacedisease on CT chest. ABG reviewed with the O2 saturation 82% on 4 L nasal cannula. -Patient was given azithromycin and ceftriaxone in the ED. Will start on Linezolid, Doxycycline, and Zosyn due to severity. Patient admitted to ICU. -Patient was given 125 mg of Solu-Medrol in the ED. -Sputum culturenormal haley -Legionella and pneumococcal urinary antigen negative -DuoNeb every 4 hours scheduled q2 prn -Oxygen; now requiring Venturi mask. RT to follow. -CT chest I lateral airspace disease. Bilateral pleural effusions. Small. -01/10. No improvement. Suspect this is bilateral pulmonary edema. Treat for CHF exacerbation. -01/11. Cardiology does not believe this is a CHF exacerbation. Oxygenation improved with diuresis however. high RVSP on echo We'll get repeat chest x- ray. Antibiotics for coverage of atypical, Route spectrum coverage. HIV ordered to lymphopenia. =01/12. Chest x-ray with improved edema. Would not expect pneumonia improved so quickly on x-ray. Likely CHF. Continue fluid restrictions.HIV testing pending. =01/13. Patient will need oxygen at home. Continues improving. Possible discharge home tomorrow. 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 BUN/ creatinine 64/5.10 acutely worse from creatinine of 2.77 on 06/10/15. ABG revealed metabolic acidosis. Electrolytes are stable. -Nephrology consultation -Ultrasound kidneys -Will avoid IVF due to pneumonia, impaired respiratory status, h/o CHF. -Avoid nephrotoxins = Creatinine increasing =01/13. Creatinine again stable. Appreciate nephrology assistance. Patient will need follow-up with outpatient smokehouse operator. //Elevated troponin: 0.10. . Patient without chest pain. Attributed to renal failure. //Suspected CHF exacerbation Elevated BNP: BNP 1898. Only trace lower extremity edema. pos JVD. Respiratory failure initially attributed to pneumonia. -Dr. Guerra reported last EF was 40% and he is controlled on medications. -Patient was hydrating more than usual due to cold. -01/10-jvd. New Echo pending. Possible cardiorenal syndrome as well. Diuresis. -01/11. Echo reviewed with reduced ejection fraction. Elevated RVSP. with patchy bilateral airspace disease still suspect this is CHF/pulm hypertension related Appreciate cardiology's assistance. -. Chest x-ray on 01/12 with improved edema. We will continue to diurese as tolerated. Patient will likely need to go home on fluid restrictions. //paroxysmal atrial fibrillation. Seen overnight on 01/12/17. With controlled rate. Discussed with cardiology. In the setting of acute respiratory failure. Cardiology recommends Holter monitor, follow-up with cardiology as outpatient. //Mild anemia: 11.4, previously 14.1 on 06/09/15, but patient has had anemia in the past per EMR. -Likely secondary to kidney failure, dilution from fluid overload. Patient denies bleeding. -Monitor CBC HTN: Continue carvedilol. Hold amlodipine. Blood pressure stable. CAD: Continue ASA, Zontivity, and statin //Incidental finding of rectal outpouching with barium retained. This is an incidental finding. Will need to be followed up as an outpatient. DVT prevention: Heparin sq Discharge Planning Continue tx for CHF exacerbation, acute kidney injury. oxygen evaluation with 86% ambulating. Will require oxygen at home. Grant Raygoza MD Jan 13, 2017 23:21
[2017-01-14] VITALS (8 sets, daily range): BP systolic 107–130; BP diastolic 77–86; PULSE 64–79; RESP 17–31; TEMP 97.6–97.9; O2SAT 95–98
[2017-01-14] MEDS: CHLORHEXIDINE GLUCONATE 2 % 1 PACK (2 CLOTHS)(taper/protocol) TOPICAL SCH (03:06)
[2017-01-14] MEDS: DOXYCYCLINE INJ 100 MG in SODIUM CHLORIDE 0.9% INJ 100 ML IV SCH (04:07)
[2017-01-14] MEDS: HEPARIN SODIUM - SQ 10,000 UNITS/ML VIAL SQ SCH (04:08)
[2017-01-14 04:52] LABS: AUTOMATED NEUTROPHIL # 1.5 TH/MM3 (1.8-7.7); BASOPHIL % 0.2 % (0.0-2.0); EOSINOPHIL # 0.1 TH/MM3 (0-0.4); EOSINOPHIL % 3.8 % (0.0-4.0); HEMATOCRIT 32.7 % (39.0-51.0); HEMO FLAGS DIFF FINAL; LYMPH % 42.6 % (9.0-44.0); LYMPHOCYTE # 1.3 TH/MM3 (1.0-4.8); MEAN CELL VOLUME 95.5 FL (80.0-100.0); MEAN CORPUSCULAR HEMOGLOBIN 31.7 PG (27.0-34.0); MEAN CORPUSCULAR HGB CONC 33.2 % (32.0-36.0); MONO % 7.9 % (0.0-8.0); NEUT % 45.5 % (16.0-70.0); PLATELET COUNT 148 TH/MM3 (150-450); RED BLOOD COUNT 3.42 MIL/MM3 (4.50-5.90); RED CELL DISTRIBUTION WIDTH 14.5 % (11.6-17.2); WHITE BLOOD COUNT 3.1 TH/MM3 (4.0-11.0)
[2017-01-14 05:10] LABS: CHLORIDE 113 MEQ/L (98-107); POTASSIUM 4.6 MEQ/L (3.5-5.1); SODIUM (NA) 144 MEQ/L (136-145)
[2017-01-14 05:16] LABS: ANION GAP 11 MEQ/L (5-15); BICARBONATE 19.9 MEQ/L (21.0-32.0)
[2017-01-14 05:17] LABS: BLOOD UREA NITROGEN 71 MG/DL (7-18)
[2017-01-14 05:19] LABS: ALT (GPT) 33 U/L (12-78); AST (GOT) 33 U/L (15-37); GLOMERULAR FILTRATION RATE 11 ML/MIN (>89)
[2017-01-14 05:21] LABS: TOTAL BILIRUBIN ADULT 0.3 MG/DL (0.2-1.0)
[2017-01-14 05:22] LABS: ALKALINE PHOSPHATASE 68 U/L (45-117)
[2017-01-14] MEDS: ASPIRIN EC 81 MG TABEC PO SCH (09:51)
[2017-01-14] MEDS: ZONTIVITY 2.08 MG PO SCH (09:51)
[2017-01-14] MEDS: CARVEDILOL 6.25 MG TAB PO SCH (09:52)
[2017-01-14] MEDS: ALLOPURINOL 100 MG TAB PO SCH (09:52)
[2017-01-14] MEDS: LANTHANUM CARBONATE 500 MG CHEWABLE TABLET CHEW SCH ×2 (09:52→14:17)
[2017-01-14] MEDS: ATORVASTATIN 40 MG TAB PO SCH (10:05)
--- NOTE | 2017-01-14 10:37 | HHI.PR ---
Subjective Remarks Patient seen and examined today with Dr. Raygoza. Patient states that he is doing much better. Breathing status has significantly improved. Patient very eager to go home. Objective Vitals Vital Signs Date Time Temp Pulse Resp B/P Pulse Ox O2 Delivery O2 Flow Rate FiO2 01/14/17 07:30 96 Nasal Cannula 2.00 01/14/17 04:00 97.6 68 17 124/86 95 01/14/17 03:00 68 21 107/77 96 01/14/17 00:00 97.9 68 21 125/82 98 01/13/17 22:00 74 01/13/17 22:00 74 25 96 01/13/17 21:00 82 21 01/13/17 20:37 96 Nasal Cannula 2.00 01/13/17 20:00 79 01/13/17 20:00 97.9 78 24 129/84 96 01/13/17 20:00 96 Nasal Cannula 2.00 01/13/17 19:52 78 24 129/84 01/13/17 19:00 84 25 01/13/17 18:30 70 01/13/17 16:30 70 01/13/17 16:00 78 28 124/79 01/13/17 14:09 73 01/13/17 14:01 82 34 134/84 01/13/17 12:36 70 01/13/17 12:01 98.0 72 22 141/91 95 01/13/17 11:01 74 25 135/83 92 I/O 01/13/17 01/13/17 01/13/17 01/14/17 01/14/17 01/14/17 07:00 15:00 23:00 07:00 15:00 23:00 Intake Total 352 ml 560 ml 120 ml 175 ml Output Total 675 ml 450 ml 300 ml 400 ml Balance -323 ml 110 ml -180 ml -225 ml Intake Oral 240 ml 560 ml 120 ml 60 ml IV Total 112 ml 115 ml Output Urine Total 675 ml 450 ml 300 ml 400 ml # Bowel Movements 0 0 Result Diagram: 01/14/17 0417 01/14/17416 Objective Remarks GENERAL: Well-developed, well-nourished, in no acute distress. alert and orientated HEENT: Head is normocephalic without any lesions or masses noted. Facial features are symmetric. Eyes: Extraocular muscles are intact. Conjunctivae were clear. NECK: Supple without any masses. Trachea midline no deviation. No JVD CARDIAC: Regular rhythm, regular rate. S1/S2 are heard. No murmurs gallops or rubs. LUNGS: Clear to auscultation bilaterally. No wheeze, rhonchi or rales. No use of accessory muscles on inspiration or expiration. ABDOMEN: Soft, nontender. Nondistended. Bowel sounds heard in all 4 quadrants. No organomegaly or masses. Negative rebound, negative guarding EXTREMITIES: No edema, pulses are equal bilaterally. No cyanosis or clubbing NEUROLOGY: Mood and affect appear appropriate. Cranial nerves II through XII grossly intact. Moving all extremities, speech is clear Urinary Catheter: No Vascular Central Line Catheter: No A/P Assessment and Plan //Severe sepsis: Resolved. Patient presented with WBC count 3.6. Heart rate greater than 90. O2 saturation 82% on room air. Source of infection pneumonia. Lactic acid normal. Influenza negative. -Admitted to ICU for closer management -Antibiotics as below. -Telemetry -Blood cultures 2 no growth to date, Legionella negative. Influenza negative. -Sputum culture shows rare growth of normal respiratory haley -Monitor intake and output //Possible Pneumonia/Acute respiratory failure: Chest x-ray with "consolidation " bilaterally on admission chest x-ray. however this is found to be airspace disease on CT chest. ABG reviewed with the O2 saturation 82% on 4 L nasal cannula. -Patient was given azithromycin and ceftriaxone in the ED. was started on Linezolid, Doxycycline, and Zosyn due to severity. -Patient was given 125 mg of Solu-Medrol in the ED. -DuoNeb every 4 hours scheduled q2 prn -O2 supplementation maintain O2 sats greater than 92% -CT chest I lateral airspace disease. Bilateral pleural effusions. Small. -01/10. No improvement. Suspect this is bilateral pulmonary edema. Treat for CHF exacerbation. -01/11. Cardiology does not believe this is a CHF exacerbation. Oxygenation improved with diuresis however. high RVSP on echo We'll get repeat chest x- ray. Antibiotics for coverage of atypical, Route spectrum coverage. HIV ordered to lymphopenia. =01/12. Chest x-ray with improved edema. Would not expect pneumonia improved so quickly on x-ray. Likely CHF. Continue fluid restrictions.HIV testing pending. =01/13. Patient will need oxygen at home. Continues improving. Possible discharge home tomorrow. 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 BUN/ creatinine 64/5.10 acutely worse from creatinine of 2.77 on 06/10/15. ABG revealed metabolic acidosis. Electrolytes are stable. -Nephrology consultation -Ultrasound kidneys -Will avoid IVF due to pneumonia, impaired respiratory status, h/o CHF. -Avoid nephrotoxins = Creatinine increasing =01/13. Creatinine again stable. Appreciate nephrology assistance. Patient will need follow-up with outpatient systematic theology professor. = 01/14. Creatinine improved at 5.2. Mild metabolic acidosis. //Elevated troponin: 0.10. . Patient without chest pain. Attributed to renal failure. 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 Only trace lower extremity edema. pos JVD. Respiratory failure initially attributed to pneumonia. -Dr. Guerra reported last EF was 40% and he is controlled on medications. -Patient was hydrating more than usual due to cold. -01/10-jvd. New Echo pending. Possible cardiorenal syndrome as well. Diuresis. -01/11. Echo reviewed with reduced ejection fraction. Elevated RVSP. with patchy bilateral airspace disease still suspect this is CHF/pulm hypertension related Appreciate cardiology's assistance. 01/13. Chest x-ray on 01/12 with improved edema. We will continue to diurese as tolerated. Patient will likely need to go home on fluid restrictions. //paroxysmal atrial fibrillation. Seen overnight on 01/12/17. With controlled rate. Discussed with cardiology. In the setting of acute respiratory failure. Cardiology recommends Holter monitor, follow-up with cardiology as outpatient. //Mild anemia: 11.4, previously 14.1 on 06/09/15, but patient has had anemia in the past per EMR. -Likely secondary to kidney failure, dilution from fluid overload. Patient denies bleeding. -Monitor CBC -Hemoglobin remained stable 10.9 //HTN: Continue carvedilol. Hold amlodipine. Blood pressure stable. //CAD: Continue ASA, Coreg, and statin //Incidental finding of rectal outpouching with barium retained. This is an incidental finding. Will need to be followed up as an outpatient. //DVT prevention: Heparin sq Written by Jed Patiño PA-C, acting as scribe for Dr. Raygoza on 01/14/17 at 10:30. All or portions of this note were transcribed by scribe [Jed Patiño PA-C] . I, Dr. Grant Raygoza personally performed the history, physical exam, and medical decision making; and confirmed the accuracy of the information in the transcribed note. Authenticated by Dr. Grant Raygoza on 01/14/17 at 16:05. Discharge Planning Discharge planning today with outpatient follow-up Jed Patiño Jan 14, 2017 10:37 Grant Raygoza MD Jan 14, 2017 16:05
[2017-01-14] MEDS: RESP: ALBUTEROL 2.5 MG/IPRATROPIUM 0.5 MG NEB (PRN) NEB ×2 (10:52→15:46)
[2017-01-14] MEDS ORDERED: OXYGENTANK NAS.CANULA (12:51)
[2017-01-14] MEDS ORDERED: DOXY100C PO (12:51)
[2017-01-14] MEDS ORDERED: ATOR40TA16 PO (12:51)
[2017-01-14] MEDS ORDERED: FURO1TAB62 PO (12:51)
[2017-01-14] MEDS ORDERED: IPRASOL INH (12:51)
[2017-01-14] MEDS ORDERED: NEBULIZER1 MI1 (12:51)
--- NOTE | 2017-01-14 12:53 | HHI.DCPOC ---
Discharge Care Plan Diagnosis: (1) PNA (pneumonia) (2) Acute on chronic renal failure (3) CHF (congestive heart failure) (4) Hypoxemia Goals to Promote Your Health * To prevent worsening of your condition and complications * To maintain your health at the optimal level Directions to Meet Your Goals Take your medications as prescribed Follow your dietary instruction Follow activity as directed Keep your appointments as scheduled Take your immunizations and boosters as scheduled If your symptoms worsen call your PCP, if no PCP go to Urgent Care Center or Emergency Room Smoking is Dangerous to Your Health. Avoid second hand smoke Call the 24-hour hour crisis hotline for domestic abuse at Jed Patiño Jan 14, 2017 12:53
--- NOTE | 2017-01-14 13:02 | HHI.DS ---
Discharge Summary Admission Date Jan 09, 2017 at 15:49 Discharge Date: Jan 14, 2017 Admitting Diagnosis PNA, Hypoxia (1) Severe sepsis ICD Code: A41.9 Diagnosis: Principal (2) PNA (pneumonia) ICD Code: J18.9 Diagnosis: Principal (3) Acute respiratory failure ICD Code: J96.00 Diagnosis: Principal (4) Acute on chronic renal failure ICD Code: N17.9 Diagnosis: Principal (5) Elevated troponin ICD Code: R74.8 Diagnosis: Principal (6) Elevated brain natriuretic peptide (BNP) level ICD Code: R79.89 Diagnosis: Principal (7) Mild anemia ICD Code: D64.9 Diagnosis: Principal Procedures Echocardiogram: Systolic function was moderately severely reduced with ejection fraction 35-40%. Showing abnormal relaxation and increased filling pressure with grade 2 diastolic dysfunction. Patient with mild to moderate mitral valve regurgitation. Left atrium mildly dilated. PA peak pressure 54 mmhg Brief History - From Admission 61-year-old male with history of chronic kidney disease with one kidney, CHF, CAD, hypertension, hyperlipidemia, gout, DVT and PE, and sleep apnea presents with complaint of shortness of breath over the last 3 days stating that he felt "draggy". He states yesterday he was awoke with a mild sore throat but denies having head cold. He states it became worse and worse and woke up this morning and decided he needed to see a physician. He admits to a dry cough and shortness of breath and states his sides ache when he coughs. He admits to fevers and chills last night. Denies any nausea or vomiting. He states he has received a flu vaccination but denies using the pneumonia vaccination. States he was [place] [employer] [place] He had contact with his sister who had a cold. He denies any history of COPD. Denies leg swelling. The patient states he has stage 3.5-4 chronic kidney disease. Denies any decreased urinary output. CBC/BMP: 01/14/17 0417 01/14/17 0417 Significant Findings Laboratory Tests Test 01/12/17 01/13/17 01/14/17 05:55 06:02 04:17 White Blood Count 3.0 TH/MM3 3.1 TH/MM3 3.1 TH/MM3 (4.0-11.0) (4.0-11.0) (4.0-11.0) Red Blood Count 3.27 MIL/MM3 3.46 MIL/MM3 3.42 MIL/MM3 (4.50-5.90) (4.50-5.90) (4.50-5.90) Hemoglobin 10.0 GM/DL 10.6 GM/DL 10.9 GM/DL (13.0-17.0) (13.0-17.0) (13.0-17.0) Hematocrit 31.2 % 33.2 % 32.7 % (39.0-51.0) (39.0-51.0) (39.0-51.0) Platelet Count 130 TH/MM3 140 TH/MM3 148 TH/MM3 (150-450) (150-450) (150-450) Monocytes (%) (Auto) 8.3 % (0.0-8.0) 8.4 % (0.0-8.0) Lymphocytes # (Auto) 0.9 TH/MM3 (1.0-4.8) Chloride Level 110 MEQ/L 113 MEQ/L 113 MEQ/L (98-107) (98-107) (98-107) Blood Urea Nitrogen 69 MG/DL (7-18) 70 MG/DL (7-18) 71 MG/DL (7-18) Creatinine 5.80 MG/DL 5.60 MG/DL 5.20 MG/DL (0.60-1.30) (0.60-1.30) (0.60-1.30) Estimat Glomerular Filtration 10 ML/MIN (>89) 10 ML/MIN (>89) 11 ML/MIN (>89) Rate Albumin 2.3 GM/DL 2.5 GM/DL 2.4 GM/DL (3.4-5.0) (3.4-5.0) (3.4-5.0) Neutrophils # (Auto) 1.4 TH/MM3 1.5 TH/MM3 (1.8-7.7) (1.8-7.7) Potassium Level 5.2 MEQ/L (3.5-5.1) Total Protein 6.1 GM/DL 6.1 GM/DL (6.4-8.2) (6.4-8.2) Carbon Dioxide Level 19.9 MEQ/L (21.0-32.0) Imaging Last Impressions Chest X-Ray 01/11/17 Signed Impressions: Service Date/Time: Wednesday, January 11, 2017 19:59 - CONCLUSION: Mild prominence of the interstitium in the mid and lower lungs likely representing some mild edema. When compared to the prior exam the aeration of the lungs has improved. Ozzie Huff MD Renal Ultrasound 01/10/17 Signed Impressions: Service Date/Time: January 08:34 - CONCLUSION: Possible pelvic mass. Recommend CT pelvis. Single kidney. Increased renal cortical echogenicity consistent with medical renal disease. No hydronephrosis Ozzie Mcdaniel MD Abdomen/Pelvis CT 01/10/17 Signed Impressions: Service Date/Time: January 15:44 - CONCLUSION: 1. There is a 3.7 cm masslike lesion which contains a either calcification or retained barium ; this appears to arise from the distal rectum and may represent a large diverticular outpouching or impacted barium. A calcified mass can not be excluded. May consider direct visualization with sigmoidoscopy to increase the specificity. 2. Abnormal appearance the lower lungs with patchy areas of partially consolidative airspace infiltrates. 3. Bilateral fat containing inguinal hernias. 4. No dilated loops of small or large bowel. Lobo Oleary MD Chest CT 01/09/17 Signed Impressions: Service Date/Time: Monday, January 09, 2017 16:29 - CONCLUSION: 1. CT confirms the presence of bilateral patchy airspace disease, left greater than right characteristic of pneumonic infiltrates. 2. Associated pretracheal and AP window adenopathy, likely reactive. 3. Small bilateral pleural effusions. 4. Dense atherosclerotic calcification of the coronary arteries Akbar Chow MD PE at Discharge GENERAL: Well-developed, well-nourished, in no acute distress. alert and orientated HEENT: Head is normocephalic without any lesions or masses noted. Facial features are symmetric. Eyes: Extraocular muscles are intact. Conjunctivae were clear. NECK: Supple without any masses. Trachea midline no deviation. No JVD CARDIAC: Regular rhythm, regular rate. S1/S2 are heard. No murmurs gallops or rubs. LUNGS: Clear to auscultation bilaterally. No wheeze, rhonchi or rales. No use of accessory muscles on inspiration or expiration. ABDOMEN: Soft, nontender. Nondistended. Bowel sounds heard in all 4 quadrants. No organomegaly or masses. Negative rebound, negative guarding EXTREMITIES: No edema, pulses are equal bilaterally. No cyanosis or clubbing NEUROLOGY: Mood and affect appear appropriate. Cranial nerves II through XII grossly intact. Moving all extremities, speech is clear Hospital Course 61 year-old male who originally presented to the hospital because of shortness of breath, and fatigue. Patient had workup done emergency department found to have multiple medical problems to include chest x-ray with bilateral airspace disease, consolidation, elevated BNP, elevated troponin. Patient clinically with acute respiratory failure with hypoxia. CT scan did indicate significant airspace disease which most represents pulmonary congestion and possible some underlying infiltrates. Patient was started on antibiotics for atypical presentation to include Zosyn, Zyvox, doxycycline. Patient did present with sepsis syndrome secondary to leukopenia, hypoxia, infectious source indicating pneumonia. Patient did undergo cultures for sputum which are negative, Legionella and influenza testing was negative. Blood cultures are negative. No active source of infection was identified with cultures. Patient did have congestive heart failure findings and was treated with diuretic. With improvement of patient's chest x-ray. Patient did have A&P elevation, troponin elevation. Demand Inspector was consulted who indicated that likely elevations were due to patient's renal failure. Recommended having a Holter monitor placed in follow-up in outpatient setting. Patient did have acute renal failure on chronic kidney disease. Environmental Marketer was consulted who followed with the patient. The patient's renal functions have improved minimally. As indicated that the patient is a follow with his normal screener perfumer in order to continue management and possible undergo kidney transplant. Patient still has hypoxia requiring oxygen at 2 L. Patient did undergo home oxygen walk study which did confirm need for oxygen. Case management was consulted to supply patient with home oxygen. Patient clinically stable this time in regards to his medical condition. He is breathing better. No longer any signs of sepsis. Will plan discharge accordingly with home health care, home oxygen. Outpatient follow-up. Pt Condition on Discharge: Stable Discharge Disposition: Discharge Home Discharge Time: > 30 minutes Discharge Instructions DIET: Follow Instructions for: Heart Healthy Diet Activities you can perform: Regular-No Restrictions Follow up Referrals: Cardiology - 2 Weeks with Kojo Trimble MD Nephrology - 2 Weeks PCP Follow-up - 1 Week New Medications: Doxycycline Hyclate (Doxycycline Hyclate) 100 Mg Cap 100 MG PO BID Infection #14 Ref 0 CAP Furosemide (Lasix) 20 Mg Tab 20 MG PO DAILY congestive heart failure #30 Ref 0 TAB Ipratropium-Albuterol Neb (Duoneb) 0.5-2.5 Mg/3 Ml Neb 1 NEBULE INH Q6HR NEB PRN SOB/WHEEZING #120 Ref 0 NEBULE Nebulizer (Nebulizer) 1 Mis Mis 1 EA .ROUTE DIRECTED Breathing Treatment #1 Ref 0 EA Oxygen tank (Oxygen tank) 1 Ea Tank 2 LITER WILBUR.CANULA CONTINUOUS Oxygen Concentrator Portable Gaseous 2 L/min via Nasal Cannula Continuous For 99 months HYPOXEMIA PREVENTION #2 CYLINDER Atorvastatin (Atorvastatin) 40 Mg Tab 80 MG PO DAILY hyperlipidemia #30 TAB Continued Medications: Allopurinol (Allopurinol) 100 Mg Tab 150 MG PO DAILY Gout #30 Ref [address] (Aspir-Low) 81 Mg Tabdr 81 MG PO DAILY [place] prevention #30 TAB Carvedilol (Carvedilol) 6.25 Mg Tab 6.25 MG PO BID #60 Ref 0 TAB Cholecalciferol (D-1000) 1,000 Unit Tab Lanthanum (Fosrenol) 750 Mg Tab 750 MG CHEW TIDPC Reduce Phosphorous #90 Ref 0 TAB Sodium Bicarbonate (Sodium Bicarbonate) 325 Mg Tab 325 MG PO BIDPC #60 Ref 0 TAB Discontinued Medications: Amlodipine (Amlodipine) 10 Mg Tab 10 MG PO DAILY Blood Pressure Management #30 Ref 0 TAB Atorvastatin (Atorvastatin) 20 Mg Tab 20 MG PO HS Cholesterol Management #30 Ref 0 TAB Bumetanide (Bumetanide) 2 Mg Tab 2 MG PO DAILY Ref 0 TAB Vorapaxar Sulfate (Zontivity) 2.08 Mg Tab 2.08 MG PO DAILY Blood Clot Prevention #30 TAB Additional Information Written by Jed Patiño PA-C, acting as scribe for Dr. Raygoza on 01/14/17 at 1305. All or portions of this note were transcribed by scribe [Jed Patiño PA-C] . I, Dr. Grant Raygoza personally performed the history, physical exam, and medical decision making; and confirmed the accuracy of the information in the transcribed note. Authenticated by Dr. Grant Raygoza on 01/14/17 at 15:57. Jed Patiño Jan 14, 2017 13:02 Grant Raygoza MD Jan 14, 2017 15:57
--- NOTE | 2017-01-14 13:04 | HHI.FF ---
Face to Face Verification Diagnosis: (1) Acute respiratory failure (2) CHF (congestive heart failure) (3) Hypoxemia Physical Therapy Order: Evaluate and Treat, Improve ambulation, Strength and gait training Home Health Nursing Order: Medical education Signs/symptoms of disease process CHF education Oxygen administration education Nursing assessment with vital signs I have seen patient Lobo Hansen on 01/14/17. My clinical findings support the need for the requested home health care services because: Patient has SOB I certify that my clinical findings support that this patient is homebound because: Unsteady gait/balance Poor cardiac reserve Jed Patiño Jan 14, 2017 13:04
[2017-01-14] MEDS: SODIUM CHLORIDE 0.9% FLUSH 10 ML FLUSH IV FLUSH SCH (14:30)
--- NOTE | 2017-01-14 15:13 | HHI.NPPN ---
Subjective Renal Failure: Stage IV History of Present Illness 61-year-old male with a past medical history of hypertension, history of sleep apnea, ischemic heart disease, hyperlipidemia, congestive heart failure, chronic kidney disease with single kidney. He came to the hospital with the complaint of worsening shortness of breath. I was called to see the patient because of elevated BUN and creatinine. The patient has known history of chronic kidney disease and he has been following with [facility] in [place]. Additional Remarks Patient seen in AM, sitting on chair, no SOB, with nasal cannula. Review of Systems General Constitutional: Fatigue Respiratory Lungs: SOB, Cough Cardiovascular Cardiac: Edema, GR Objective Data Data 01/13/17 01/14/17 19:00 07:00 Intake Total 560 ml 295 ml Output Total 450 ml 700 ml Balance 110 ml -405 ml Intake Oral 560 ml 180 ml IV Total 115 ml Output Urine Total 450 ml 700 ml # Bowel Movements 0 Vital Signs Date Time Temp Pulse Resp B/P Pulse Ox O2 Delivery O2 Flow Rate FiO2 01/14/17 08:01 97.9 64 20 117/84 95 01/14/17 08:00 79 01/14/17 07:45 68 01/14/17 07:30 96 Nasal Cannula 2.00 01/14/17 07:00 97 Nasal Cannula 2.00 01/14/17 04:00 97.6 68 17 124/86 95 01/14/17 03:00 68 21 107/77 96 01/14/17 00:00 97.9 68 21 125/82 98 01/13/17 22:00 74 01/13/17 22:00 74 25 96 01/13/17 21:00 82 21 01/13/17 20:37 96 Nasal Cannula 2.00 01/13/17 20:00 79 01/13/17 20:00 97.9 78 24 129/84 96 01/13/17 20:00 96 Nasal Cannula 2.00 01/13/17 19:52 78 24 129/84 01/13/17 19:00 84 25 01/13/17 18:30 70 01/13/17 16:30 70 01/13/17 16:00 78 28 124/79 -: 01/14/17 0417 01/14/17 0417 Physical Exam General Appearance: No Acute Distress, Comfortable Eyes Eye Exam: Pupils Equal Neck Neck Exam: Neck Supple, Trachea Midline Pulmonary Resp Exam: Breath Sounds Equal, No Distress, Rhonchi, Decreased Bases Cardiology CV Exam: Regular, Normal Sinus Rhythm Gastrointestinal/Abdomen GI Exam: Soft, Non-Tender, Bowel Sounds Present Extremeties Extremities Exam: Trace Edema Neurologic Neuro Exam: Alert, Awake, Oriented Psychiatric Psych Exam: Appropriate Responses Assessment/Plan Assessment Summary: GENTRY/Acute Renal Failure, CHF, CKD Stage IV Problem List: (1) HTN (hypertension) (2) CHF (congestive heart failure) (3) Elevated troponin (4) PNA (pneumonia) (5) Acute respiratory failure (6) Mild anemia (7) Acute on chronic renal failure Plan Patient has advance stage 4 chronic kidney disease, Creatinine is slightly better. On antibiotics for pneumonia. BP is stable, urine out put is good. He would like to hold Dialysis if possible for now and start PD - follows in [place], and is planning for renal transplant from his sister. No acute need for HD at this time, volume status and electrolytes stable. Off diuretics. Now for possible D/C , to follow with his [facility] [employer] [facility] in [place]. Problem Qualifiers (1) PNA (pneumonia): Qualified Code: J18.9 - Pneumonia of both lungs due to infectious organism, unspecified part of lung Vish Ann MD Jan 14, 2017 15:13
--- NOTE | 2017-01-16 12:18 | HM ---
Date Performed: 01/13/2017 Time Performed: 17:35:00 HOOKUP DATE: 01/13/17 05:35:00 PM Sun ANALYSIS START TIME: 01/13/2017 5:40:00 PM ANALYSIS END TIME: 01/14/2017 3:29:32 PM PATIENT AGE: 61 PATIENT HEIGHT PATIENT WEIGHT DRUG LIST PATIENT DIAGNOSIS: PNA HYPOXIA TEST NARRATIVE: The patient's average heart rate was 73 BPM. No episodes of tachycardia wer e noted. No episodes of bradycardia were noted. No pauses exceeding 2.0 seconds were noted. 140 ventricular ectopics, which represented < 1% of the total beat count, were noted. The highest ve ntricular ectopic frequency occurred from 10:00 AM to 11:00 AM Mon. During this time 14 VE(s) occurr ed. Ventricular ectopics were observed as 133 isolated beat(s), as 2 couplet(s) and as 1 run(s). 179 supraventricular ectopics, which represented < 1% of the total beat count, were noted. The high est supraventricular ectopic frequency occurred from 07:00 PM to 08:00 PM Sun. During this time 20 S VE(s) occurred. No episodes of ST depression (defined as -1.0 mm or more) were noted in channel [address] . No episodes of [address] depression (defined as -1.0 mm or more) were noted in channel 2. No episodes of ST depression (defined as -1.0 mm or more) were noted in channel 3. TEST INTERPRETATION: Sinus rhythm Rare to occasional PACs and PVCs Signed by : Vic Winkler
== END 2017-01-14 16:25 | disposition home health service (06) | DRG 871 ==
LOC: PHED 13:51 → PHEDA 15:49 → PHICU 23:59
PROVIDERS: ADMIT Internal Medicine; ATTEND Internal Medicine
PROC: 3E0F7GC Introduction of Other Therapeutic Substance into Respiratory Tract, Via Natural or Artificial Opening (ICD-10-PCS; principal; 2017-01-09)
DX: A41.9 Sepsis, unspecified organism (principal); J18.9 Pneumonia, unspecified organism; J96.01 Acute respiratory failure with hypoxia; E87.2 Acidosis; N17.9 Acute kidney failure, unspecified; N18.4 Chronic kidney disease, stage 4 (severe); R63.0 Anorexia; I50.20 Unspecified systolic (congestive) heart failure; I42.9 Cardiomyopathy, unspecified; Q60.0 Renal agenesis, unilateral; R65.20 Severe sepsis without septic shock; E78.00 Pure hypercholesterolemia, unspecified; I25.2 Old myocardial infarction; I25.10 Atherosclerotic heart disease of native coronary artery without angina pectoris; Z95.5 Presence of coronary angioplasty implant and graft; Z86.711 Personal history of pulmonary embolism; Z86.718 Personal history of other venous thrombosis and embolism; M10.9 Gout, unspecified; K21.9 Gastro-esophageal reflux disease without esophagitis; G47.30 Sleep apnea, unspecified; Z96.643 Presence of artificial hip joint, bilateral; Z88.6 Allergy status to analgesic agent; I12.9 Hypertensive chronic kidney disease with stage 1 through stage 4 chronic kidney disease, or unspecified chronic kidney disease; R74.8 Abnormal levels of other serum enzymes; D64.9 Anemia, unspecified; E78.5 Hyperlipidemia, unspecified; Z87.891 Personal history of nicotine dependence; Y83.1 Surgical operation with implant of artificial internal device as the cause of abnormal reaction of the patient, or of later complication, without mention of misadventure at the time of the procedure; I27.2 Other secondary pulmonary hypertension; I48.0 Paroxysmal atrial fibrillation; I34.0 Nonrheumatic mitral (valve) insufficiency
CPT/HCPCS: 36600; 71010; 71250; 74176; 76775; 80048; 80053; 80069; 81001; 82550; 82552; 82805; 83605; 83735; 83880; 84484; 85025; 85610; 85730; 86703; 87040; 87070; 87205; 87449; 87641; 87804; 93005; 93225; 93226; 93306; 94620; 94640; 94664; 96365; 96375; J0456; J0696; J1644; J1940; J2020; J2270; J2543; J2930; J7050; J7613; Q9963

== ENCOUNTER 2018-02-12 06:26 | Day surgery (SDC) | payer MEDICARE, OTHER ==
[~2018-02-12] VITALS: Ht 177.8 cm; Wt 97.5 kg
[~2018-02-12 06:26] MED LIST changes: -1-ME1LIQ PO; +ALLO100T PO; -ALLO300T2 PO; +ASPI81TA19 PO; -ASPI81TA82 PO; -ATOR20TA PO; +ATOR40TA16 PO; -BUME1TAB PO; -CHOL50006 PO; +D-10TAB; +DOXY100C PO; -FERR140T PO; +FURO1TAB62 PO; +IPRASOL INH; +NEBULIZER1 MI1; -NITR.4 SL; +OXYGENTANK NAS.CANULA; -PRAS10TA PO; -PROT40TA PO; +SODI325T PO; +[UNRECOGNIZED DRUG - CODE] CHEW
[2018-02-12] MEDS ORDERED: IOHEXOL 350 MG/ML 50 ML BTL (for Cath Lab) OTHER ONE (06:27)
[2018-02-12] MEDS ORDERED: NS 1000P @30 MLS/HR (KVO) IV SCH (07:30)
[2018-02-12] MEDS ORDERED: HEPARIN-NS/PF FLUSH BAG 2,000 ML IV FLUSH ONE (07:31)
[2018-02-12 07:40] LABS: AUTOMATED NEUTROPHIL # 2.7 TH/MM3 (1.8-7.7); BASOPHIL % 0.6 % (0.0-2.0); EOSINOPHIL # 0.2 TH/MM3 (0-0.4); EOSINOPHIL % 3.8 % (0.0-4.0); HEMATOCRIT 36.5 % (39.0-51.0); HEMOGLOBIN 12.3 GM/DL (13.0-17.0); LYMPH % 26.4 % (9.0-44.0); LYMPHOCYTE # 1.2 TH/MM3 (1.0-4.8); MEAN CORPUSCULAR HEMOGLOBIN 32.4 PG (27.0-34.0); MEAN CORPUSCULAR HGB CONC 33.8 % (32.0-36.0); MEAN PLATELET VOLUME 7.7 FL (7.0-11.0); MONO % 8.6 % (0.0-8.0); MONOCYTE # 0.4 TH/MM3 (0-0.9); NEUT % 60.6 % (16.0-70.0); PLATELET COUNT 163 TH/MM3 (150-450); RED CELL DISTRIBUTION WIDTH 16.9 % (11.6-17.2); WHITE BLOOD COUNT 4.5 TH/MM3 (4.0-11.0)
[2018-02-12 07:47] LABS: PROTHROMBIN TIME - PATIENT 10.2 SEC (9.8-11.6)
[2018-02-12 07:54] VITALS: BP 126/80; PULSE 78; RESP 18; TEMP 97.9; O2SAT 93
[2018-02-12 08:01] LABS: BICARBONATE 21.2 MEQ/L (21.0-32.0); CALCIUM 9.4 MG/DL (8.5-10.1); CREATININE 9.78 MG/DL (0.60-1.30)
[2018-02-12] MEDS ORDERED: ZOLP10TA3 PO (08:19)
[2018-02-12] MEDS ORDERED: VORA1TAB PO (08:19)
[2018-02-12] MEDS ORDERED: MIDAZOLAM HCL 2 MG/2 ML VIAL ONE (09:13)
--- NOTE | 2018-02-12 09:59 | MH ---
cc: Pj Guerra MD DATE OF ADMISSION: 02/12/2018 ADMISSION DIAGNOSIS: Preoperative clearance for renal transplant. HISTORY OF PRESENT ILLNESS: This is a 62-year-old man with known coronary artery disease. He has multiple cardiac risk factors. He is being worked up for kidney transplant. As part of that workup a cardiac catheterization is required. The patient is known to have coronary artery disease. He had an LAD stent placed by Dr. Winkler on 09/16/2013. Forty-eight hours later, he developed acute stent thrombosis, repeated stent procedure to the LAD. The initial procedure was a 3.0 x 18 mm Integrity stent of the proximal LAD and a 2.75 x 14 mm Integrity stent in the diagonal. On his repeat procedure, I used another 3.0 x 18 mm bare-metal stent of the proximal LAD, but I postdilated at this time with a 3.5 mm balloon. His last cardiac catheterization was performed 06/10/2015. Left main had 20% distal disease. The LAD had 20-30% proximal in-stent stenosis. There was 90% stenosis, a very small diagonal. The major diagonal had 40% proximal in-stent stenosis. Ramus had irregularities. Circumflex artery was normal. The right coronary artery had 25% mid and 50% distal disease. He was treated medically. His last nuclear stress test showed no ischemia. However, because he requires a cardiac catheterization in order to be able to get a renal transplant, that is why the patient is here. The patient has not had any anginal symptoms. He has done well with control of his risk factors. He has lost weight. PAST MEDICAL HISTORY: Includes sleep apnea, coronary artery disease, clopidogrel nonresponder, end-stage renal disease and he is on peritoneal dialysis, hyperlipidemia, hypertension. He had a depressed ejection fraction after his [place], but this has subsequently recovered. Previous [place], paroxysmal atrial fibrillation 01/12/2017 while the patient had pneumonia, pulmonary embolism in 2004 where he had a DVT and a pulmonary embolism that was unprovoked, previous systolic congestive heart failure. PAST SURGICAL HISTORY: Includes stenting of the left anterior descending and diagonal as described above, appendectomy, left total hip replacement, right total hip replacement orchiectomy. MEDICATIONS: Include: 1. Allopurinol 150 mg daily. 2. Aspirin 81 mg daily. 3. Atorvastatin 80 mg daily. 4. Calcitriol 0.25 mcg daily. 5. Carvedilol 6.25 mg p.o. b.i.d. 6. Fludrocortisone 0.1 mg daily. 7. Fosrenol 500 mg daily. 8. Furosemide 40 mg daily. 9. Nifedipine 60 mg daily. 10. Nitroglycerin sublingual p.r.n. 11. Sodium bicarbonate 8 grams orally daily. 12. Zolpidem 10 mg daily at bedtime. 13. Zontivity 2.08 mg daily. ALLERGIES: None. FAMILY HISTORY: Positive for lung cancer, hypertension, brain cancer, previous [place]. SOCIAL HISTORY: He was a former smoker from age 19 to age 53. Drinks only occasional to minimal alcohol. REVIEW OF SYSTEMS: Noncontributory. PHYSICAL EXAMINATION: GENERAL: A pleasant, well-developed, well-nourished white male, in no acute distress. VITAL SIGNS: Charted. HEENT: Exam is unremarkable. NECK: There are no bruits. CHEST: Clear to auscultation. CARDIOVASCULAR: Shows S1, S2 normal. Regular rate and rhythm with grade 1/6 systolic ejection murmur. ABDOMEN: Soft, nontender. No masses or organomegaly. EXTREMITIES: Reveal mild venous insufficiency. No edema. LABORATORY DATA: Charted. IMPRESSION: The patient with known complex coronary disease. He has had previous double stenting of the proximal left anterior descending as well as a diagonal branch. He is now being evaluated for a renal transplant. PLAN: Perform diagnostic catheterization and possible intervention if needed. Try to minimize contrast load. Informed consent has been obtained. MD PATRICIA Quintero/ILDEFONSO , 09:37 AM , 09:58 AM
--- NOTE | 2018-02-12 10:46 | CATHPROC ---
[facility] HIS Report Study Information Study Number Admission Scheduled Start Study Start [id number] Feb 12 2018 6:26AM 02/12/2018 Feb 12 2018 9:07AM [facility] Cardiac Catheterization Admit Source Facility Department Other [facility] Physician and Clinical Staff Initial MD Guerra, Pj Coal Passermary Dobbs RN, Sergey Recorder Scooby Moreno,RT(R) Recorder Soni Carter,RT(R) Scrub Anastasia Phillips,RT(R) Procedures Performed Procedure Location (Site) Vessel Name Angiogram LV LV Ventricle Coronary Angiograms LCA Left Coronary Coronary Angiograms RCA Right Coronary Wire insertion Fem Vein (right) Femoral Vein Equipment Time Microarray Specialist Description Size Mfg Part Number Used/Scraped CATHETER, FR5 SWAN MAHAD 09:45 TREVINO ROMANO FR 5 [id number] *[id number] Used MONITOR TRANSDUCER, TRUWAVE [id number] 09:42 TREVINO ROMANO * Used W/STOCKCOCK *[id number] TRANSDUCER, TRUWAVE [id number] 09:42 TREVINO ROMANO * Used W/STOCKCOCK *[id number] *[id number] *[id number] PIGTAIL ANG. 145 INFINITI [id number] CATHETER *[id number] 09:42 MEDLINE INDUSTRIES PACK, CCL CUSTOM * Used *[id number] 09:42 MEDLINE PACER PEN, SKIN DUAL W/ RULER * Used *[id number] 09:47 [employer] MEDICAL SHEATH, FR5.5 PRELUDE 11CM FR 5 [id number] Used [id number] 09:15 [employer] MEDICAL SHEATH, FR6.5 PRELUDE 11CM FR 6.5 038ACT Used *[id number] 09:42 [employer] MEDICAL WIRE, 3MMJ .035 180CM 180CM Used *[id number] 09:42 NAMIC MANIFOLD, 2 PORT * Used *[id number] 09:42 NAMIC MANIFOLD, 4 PORT * Used *[id number] 09:15 NYCOMED OMNIPAQUE, 350 MG, 100ML 100ML [id number] Used 09:42 NYCOMED OMNIPAQUE, 350 MG, 150ML 150ML [id number] Used [id number] 09:42 [employer] MED[employer] BLANKET,WARM AIR CCL * Used *[id number] History: Current Medications Medication Dosage/Unit Route Frequency Last Date/Time Taken ASA Statins (any) Allopurinol CARVEDILOL LASIX NTG SL History: Allergies Allergy Reaction naproxen hives History: Risk Factors Family History of Hypertension Dyslipidemia Previous NE Previous Heart Failure Premature CAD Yes Yes Yes Yes Yes Prior Valve Prior PCI Prior PCIDate Prior CABG Surgery No Yes 06/10/2015 No Cerebrovascular Peripheral Artery Chronic Lung On Dialysis Diabetes Disease Disease Disease Yes No No No No History: Symptoms/Diagnosis Selection Items Chest pain History: CV Disease Selection Items Known CAD History: Stress Tests Stress or Imaging Studies Performed Yes Standard Exercise Stress Test No Stress Echo No Stress Test SPECT Stress Test SPECT Result Stress Test SPECT Ischemia Risk/Extent Yes Positive Low Stress Test CMR No Cardiac CTA Coronary Calcium Score No No History: Other Disease Selection Items CAD HTN Renal Failure-Dialysis History: Other Current Smoker Method Quit Packs a Day Years Used Pack Years No Cigarettes 20 Years Ago 30 30 Labs Hgb (g/dl) Hct (%) RBC (MIL/MM3) WBC (l/cumm) Platelets (thousands) 11.60-17.00 35.00-51.00 4.00-5.90 4.00-11.00 150.00-450.00 12.3 36.5 3.8 4.5 163 Glucose (mg/dl) BUN (mg/dl) Creatinine (mg/dl) BUN:Creatinine (1:x) 74.00-106.00 7.00-18.00 0.50-1.30 10.00-20.00 104 84 9.7 8.7 Na (meq/l) K (meq/l) Cl (meq/l) CO2 (mmol/L) Ca (mg/dl) 136.00-145.00 3.50-5.10 98.00-107.00 21.00-32.00 8.50-10.10 143 4.4 109 21.2 9.4 PT (sec) PTT (sec) INR (PTT:PT) 9.80-11.60 24.30-30.10 0.90-1.10 10.2 24.7 1 CPK-MB (ng/ML) 0.50-3.60 Not Drawn Medication Medication Total Dose (Bolus/Oral) Medication Total Dosage/Unit 1% XYLOCAINE 20 mL FENTANYL 50 mcg VERSED 2 mg Medications (Bolus/Oral) Medication Time Given Dosage/Unit Administered By Reason VERSED 02/12/2018 9:41:03 AM 1 mg Carroll PIERCE, Sergey 1 mg VERSED given in lab by Carroll PIERCE, Sergey in Left Forearm via Peripheral IV. VERSED 02/12/2018 9:43:55 AM 1 mg Carroll PIERCE, Sergey 1 mg VERSED given in lab by Carroll PIERCE, Sergey in Left Forearm via Peripheral IV. 1% XYLOCAINE 02/12/2018 9:44:04 AM 20 mL Pj Guerra 20 mL 1% XYLOCAINE given in lab by Pj Guerra in Right Groin via Subcutaneous. FENTANYL 02/12/2018 9:48:00 AM 50 mcg Carroll PIERCE, Sergey 50 mcg FENTANYL given in lab by Carroll PIERCE, Sergey in Left Forearm via Peripheral IV. Medication (Drip) Medication Time Given Dosage/Unit Concentration/Unit Diluent (ml) Solution IV Solutions 02/12/2018 9:08:33 AM 0 mL (IV) 500 NaCl .9 IV Solutions given in lab by Carroll PIERCE, Sergey in Left Forearm via Peripheral IV. Pump/Drip Flow = 20 m l/hr using NaCl .9. Initial Case Assessment Cardiovascular HR Rhythm NIBP Chest Pain 79 Sinus 139/91 0 Edema Present Skin color Skin None Normal Warm Dry Circulatory - Right Pulses Dorsalis Pedis Femoral 1 2 Scale (0,1,2,3,4,d) Circulatory - Left Pulses Dorsalis Pedis Femoral 1 2 Scale (0,1,2,3,4,d) Neurological State Oriented to time-place- Alert Moves all extremities person Respiration - General Respiration Rate SpO2 (%) O2 (lpm) (B/min) 16 93 0 Final Case Assessment Cardiovascular HR Rhythm NIBP Chest Pain 73 reg 139/89 0 Edema Present Skin color Skin None Normal Warm Circulatory - Right Pulses Dorsalis Pedis Femoral 1 2 Scale (0,1,2,3,4,d) Circulatory - Left Pulses Dorsalis Pedis Femoral 1 2 Scale (0,1,2,3,4,d) Circulatory - Lower Extremities Color Lower Right Color Lower Left Normal Normal Neurological State Oriented to time-place- Alert Moves all extremities person Respiration - General Respiration Rate SpO2 (%) (B/min) 18 95 Chronological Log Time Study Chronological Log 9:03:07 Patient arrived via Bed. 9:08:16 Patient Name, D.O.B, / Armband Verified By R.N. 9:08:17 Consent signed by the physician and the patient and verified by the [facility] staff. 9:08:18 Pre-op and post- op instructions given; patient acknowledges understanding of instructions. 9:08:19 Verbal Stimulation=2 Physical Stimulation=2 Airway=2 Respiration=2 TOTAL=8. (0=absent, 1=li mited, 2=present) 9:08:20 Presedation assessment performed by [facility] RN. 9:08:23 Patient has been NPO for More than 6Hrs. 9:08:24 Skin Breakdown- 9:08:27 Patient Warmer Placed on the Table. 9:08:28 Stephan Prominences Protected 9:08:30 A # 20 IV was noted in the Forearm (left). Grade = 0 9:08:33 IV Solutions given in lab by Sergey Dobbs RN in Left Forearm via Peripheral IV. Pump/Drip F low = 20 ml/hr using NaCl .9. 9:08:34 History and physical on the chart or being dictated. Vitals capture started with the following parameters, Patient=Adult, Interval=5 min, Initial Pre wxenw=474 mmHg, 9:08:41 Deflation Rate=5 mmHg, Cuff placed on Unknown 9:09:17 BZQE=819/91 mmhg, SpO2=94.0 %, Pain=0, Ana=10, Lucas=2 Assessment: Initial Case, HR=79 BPM, Rhythm=Sinus, ZOKM=450/91 mmhg, Chest Pain=0, Edema=None, Color=Normal, Skin = Warm, Dry Right Pulses: Charles Ped=1, Femoral=2 9:11:12 Left Pulses: Charles Ped=1, Femoral=2 Neurological: State=Alert, Ox3, FERNANDES Respiration: Resp=16 B/min, SpO2=93 %, O2=0 lpm 9:14:18 HR=80 bpm, FSNB=659/93 mmhg, SpO2=92.0 %, Resp=23 B/min, Pain=0, Ana=10, Lucas=2 9:17:26 Bilateral groins prepped with 2% chlorhexidine, and draped after a 3 minute waiting time. 9:19:17 HR=83 bpm, NMGZ=333/92 mmhg, SpO2=92.0 %, Resp=30 B/min, Pain=0, Ana=10, Lucas=2 9:24:16 HR=89 bpm, LQAS=725/95 mmhg, SpO2=89.0 %, Resp=24 B/min, Pain=0, Ana=10, Lucas=2 9:25:40 MD arrived. 9:25:43 Reference ECG taken 9:26:14 Pressure channel 1 zeroed. 9:29:19 HR=86 bpm, FYCQ=803/91 mmhg, SpO2=86.0 %, Resp=17 B/min, Pain=0, Ana=10, Lucas=2 9:34:18 HR=79 bpm, XLRS=757/92 mmhg, SpO2=88.0 %, Resp=19 B/min, Pain=0, Ana=10, Lucas=2 9:39:19 HR=79 bpm, LDOB=974/89 mmhg, SpO2=89.0 %, Resp=31 B/min, Pain=0, Ana=10, Lucas=2 9:41:03 1 mg VERSED given in lab by Sergey Dobbs RN in Left Forearm via Peripheral IV. Time Out. Correct patient, correct procedure, correct physician, power injector not loaded with contrast with surgical 9:43:29 team present. Time Out Concurred by MD and individual staff in procedure. 9:43:51 Case Start 9:43:55 1 mg VERSED given in lab by Sergey Dobbs RN in Left Forearm via Peripheral IV. 9:44:04 20 mL 1% XYLOCAINE given in lab by Pj Guerra in Right Groin via Subcutaneous. 9:44:18 HR=80 bpm, SGOD=750/89 mmhg, SpO2=88.0 %, Resp=32 B/min, Pain=0, Ana=10, Lucas=2 9:47:52 Access site was Right Femoral Artery. 9:48:00 50 mcg FENTANYL given in lab by Sergey Dobbs RN in Left Forearm via Peripheral IV. 9:49:17 HR=76 bpm, DZIL=108/86 mmhg, SpO2=90.0 %, Resp=30 B/min, Pain=0, Ana=10, Lucas=2 9:51:10 Access site was Right Femoral Artery. 9:51:30 A SHEATH, FR6.5 PRELUDE 11CM FR 6.5 was advanced into the Fem Art (right) using the Percutan eous technique. 9:53:47 Access site was Right Femoral Vein. 9:53:57 A wire was inserted via Fem Vein (right). 9:54:08 A SHEATH, FR5.5 PRELUDE 11CM FR 5 was advanced into the Fem Vein (right) using the Percutane ous technique. 9:54:20 HR=76 bpm, DKYX=351/85 mmhg, SpO2=92 %, Resp=19 B/min, Pain=0, Ana=10, Lucas=2 9:54:50 A CATHETER, FR5 SWAN MAHAD MONITOR FR 5 was inserted via Renal Vein (right) Recorded Pressure: RA, HR=75, Condition=Condition 1 9:55:32 (Right Atrium) RA 9 Recorded Pressure: RV, HR=75, Condition=Condition 1 9:55:45 (Right Ventricle) RV 45/2/7 Recorded Pressure: MPA, HR=76, Condition=Condition 1 9:56:45 (Main Pulmonary Artery) MPA 44/20/32 Recorded Pressure: PCW, HR=75, Condition=Condition 1 9:57:13 (Pulmonary Capillary Wedge) PCW 16/15/12 9:57:54 Saturation: Site=PA (Pulmonary Artery) , O2=74.9 %, Hgb=12.3 gm/dl, Condition=Condition 1. U sed in calculation. 9:58:13 Saturation: Site=Ao (Aorta) , O2=93 %, Hgb=12.3 gm/dl, Condition=Condition 1. Used in calcul ation. 9:58:27 Ochelata Mahad Catheter Removed A JL 5.0 INFINITI CATHETER FR 6 was advanced over a wire. OMNIPAQUE, 350 MG, 100ML 100ML was us ed for 9:59:04 injections. 9:59:17 HR=75 bpm, SYQD=935/87 mmhg, SpO2=91.0 %, Resp=20 B/min, Pain=0, Ana=10, Lucas=2 10:00:24 The LCA was injected and visualized at various angles. OMNIPAQUE, 350 MG, 100ML 100ML used . Recorded Pressure: Ao, HR=74, Condition=Condition 1 10:01:14 (Aorta) Ao 115/75/92 10:03:18 Catheter was removed A RC INFINITI CATHETER FR 6 was advanced over a wire. OMNIPAQUE, 350 MG, 100ML 100ML was used for 10:03:48 injections. 10:04:20 HR=74 bpm, WSMG=663/81 mmhg, SpO2=95.0 %, Resp=20 B/min, Pain=0, Ana=10, Lucas=2 10:05:29 The RCA was injected and visualized at various angles. OMNIPAQUE, 350 MG, 150ML 150ML used . 10:07:00 Catheter was removed power injector loaded now by shantel dobbs and verified by stevenson carter 10:07:05 A PIGTAIL ANG. 145 INFINITI CATHETER FR 6 was advanced over a wire. OMNIPAQUE, 350 MG, 150ML 15 0ML was 10:07:33 used for injections. Recorded Pressure: LV, HR=75, Condition=Condition 1 10:08:59 (Left Ventricle) LV 122/8/19 10:09:21 HR=74 bpm, HZCE=541/83 mmhg, SpO2=95.0 %, Resp=20 B/min, Pain=0, Ana=10, Lucas=2 10:10:09 The LV was injected at 10 cc/sec for a total of 30. OMNIPAQUE, 350 MG, 150ML 150ML used. Recorded Pressure: LV, Ao, HR=72, Condition=Condition 1 10:10:33 (Left Ventricle) LV 116/9/15, (Aorta) Ao 123/78/98 10:10:50 Catheter was removed 10:14:18 HR=75 bpm, UXWR=513/89 mmhg, SpO2=95.0 %, Resp=21 B/min, Pain=0, Ana=10, Lucas=2 10:15:40 Case End Assessment: Final Case, HR=73 BPM, Rhythm=reg, BRTJ=964/89 mmhg, Chest Pain=0, Edema=None, [place] r=Normal, Skin = Warm Right Pulses: Charles Ped=1, Femoral=2 Left Pulses: Charles Ped=1, Femoral=2 10:16:29 Lower Right Extremities: Color=Normal Lower Left Extremities: Color=Normal Neurological: State=Alert, Ox3, FERNANDES Respiration: Resp=18 B/min, SpO2=95 % 10:19:16 arterial Sheath removed; pressure applied to access site. 10:19:24 HR=72 bpm, IYNX=388/90 mmhg, SpO2=93.0 %, Resp=15 B/min, Pain=0, Ana=10, Lucas=2 10:24:23 HR=73 bpm, LGTC=956/89 mmhg, SpO2=91.0 %, Resp=13 B/min, Pain=0, Ana=10, Lucas=2 10:25:04 No case complications noted. 10:25:05 Cine recording checked. 10:25:06 Bedside Report will be given. 10:25:09 A Left and Right Heart Cath was performed. 10:25:15 Clinical correlaton risk stratification. 10:29:24 HR=74 bpm, DRNV=784/92 mmhg, SpO2=91.0 %, Resp=22 B/min, Pain=0, Ana=10, Lucas=2 10:34:23 HR=75 bpm, VIKE=727/93 mmhg, SpO2=92.0 %, Resp=17 B/min, Pain=0, Ana=10, Lucas=2 10:39:24 HR=75 bpm, FAOX=945/95 mmhg, SpO2=92.0 %, Resp=15 B/min, Pain=0, Ana=10, Lucas=2 End Study - Contrast Media Used In Study Contrast Total Opened (mL) Total Used (mL) Total Wasted (mL) Omnipaque 45 45 0 End Study - Maximum Contrast Load Max Contrast Load (mL) 50.3 End Study - Radiation Exposure Fluoro Time (minutes) 4.2 End Study - Sheaths Sheaths Pulled By Sheath Hold Time (min) Anastasia Phillips End Study - Patient Disposition Complications Transferred To No Outpatient Bed
--- NOTE | 2018-02-12 11:00 | MA ---
cc: Pj Guerra MD, Roxy MD DATE: 02/12/2018 DATE OF : 1955 PROCEDURES PERFORMED: Left heart catheterization, right heart catheterization, left ventriculography, coronary angiography. BRIEF HISTORY: Lobo Hansen is a 62-year-old man who underwent stenting of a complex LAD diagonal lesion on 09/14/2013. He developed acute stent thrombosis and I ended up stenting him at that point and restented the proximal LAD. He has done well since that time. He has had 1 catheterization in 2014 where no revascularization was required. He is now being evaluated for a renal transplant and they required a cardiac catheterization in order to clear him. DESCRIPTION OF PROCEDURE: The patient received a total of 2 mg of IV Versed and 50 mcg of IV fentanyl for sedation. He was hydrated with 300 mL of saline prior to the start of the procedure. Using 1% lidocaine for local anesthesia and fluoroscopy, a 6.5-Swedish sheath was inserted in the right femoral artery and right femoral vein. Right heart catheterization was then performed in standard fashion using a [place]-Fabio catheter. Saturations were obtained from pulmonary artery and femoral artery to obtain a Chanel cardiac output. Coronary angiography was completed using a left 5 Shanice for the left coronary artery and a 3DRC for the right coronary artery. An angled pigtail catheter was then used to measure left ventricular pressure followed by left ventriculography and then a pullback. Films were studied. Medical therapy has been elected. There were no complications. The sheaths are being pulled manually. TOTAL CONTRAST LOAD: 45 mL. FINDINGS: I. HEMODYNAMICS: Right atrial pressure was 9/5 with a mean of 4. Right ventricular pressure 45/2 with an end-diastolic pressure of 7. Pulmonary artery pressure 44/20 with a mean of 32 Pulmonary capillary wedge pressure 16/15 with a mean of 12. Left ventricular pressure 116/9 with an end-diastolic pressure of 15. Aortic pressure 123/78 with a mean of 98. Cardiac output by Chanel was 4.1 liters per minute. II. LEFT VENTRICULOGRAPHY: Left ventriculography shows mild anterolateral and anteroapical hypokinesis with an estimated ejection fraction of 40%. There was no mitral regurgitation seen. III. CORONARY ANGIOGRAPHY: The left main coronary artery is a large vessel. It has a gradual taper distally prior to the trifurcation. It appears to be about 25% severity. The LAD is given off, has a little bit of an S-shape proximally that has been stented. There is no more than about 20% stenosis in the proximal LAD. Then, coming off of the LAD are 2 diagonal branches. The first diagonal branch is small. It is slightly smaller than the 2 mm diagnostic catheter. It has high-grade 75% ostial disease that has been noted previously. The second diagonal branch, which is only given off 5 mm after the first diagonal branch, is much larger. This vessel has been previously stented. This vessel has a 50% ostial stenosis. 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 There is slight bridging in the distal LAD. The remainder of the distal LAD appears fairly normal. The ramus intermediate branch is medium to large size and only has slight irregularities, about 20% proximally. The circumflex artery has about 20% ostial disease, but otherwise appears normal. The right coronary artery is dominant. The proximal vessel has irregularities only. Near the junction of the mid to the distal right coronary artery there is about 40% stenosis. The distal right coronary artery is ectatic. It gives off a large PDA branch and a very large posterolateral branch, which appears normal. CONCLUSIONS: 1. Mildly elevated right-sided pressures. 2. Left ventricular ejection fraction about 40% from a previous anteroapical infarct. 3. Diffuse mild to moderate coronary artery disease, but no areas were needing revascularization. NOTE: The patient is angina free and has a normal nuclear stress test. PLAN: The patient is cleared for renal transplantation from a cardiology perspective. MD PATRICIA Quintero/ILDEFONSO , 10:30 AM , 10:59 AM
== END 2018-02-12 17:43 | disposition home or self-care (01) ==
LOC: HDOC 06:26 → HDIC 06:27 → HDOC 17:43
PROVIDERS: ATTEND Internal Medicine Cardiovascular Disease
DX: I25.10 Atherosclerotic heart disease of native coronary artery without angina pectoris (principal); I13.2 Hypertensive heart and chronic kidney disease with heart failure and with stage 5 chronic kidney disease, or end stage renal disease; I50.20 Unspecified systolic (congestive) heart failure; N18.6 End stage renal disease; I25.2 Old myocardial infarction; I48.0 Paroxysmal atrial fibrillation; G47.30 Sleep apnea, unspecified; Z86.711 Personal history of pulmonary embolism; Z96.643 Presence of artificial hip joint, bilateral; Z01.818 Encounter for other preprocedural examination; Z95.5 Presence of coronary angioplasty implant and graft
CPT/HCPCS: 80048; 82810; 85025; 85610; 85730; 93460; 99152; 99153; C1769; C1893; J1644; J2250; J3010; Q9967